=== PATIENT | female | born 1955 | race African-American/Black ===

== ENCOUNTER 2018-08-13 18:09 | Inpatient (IN) | payer SELFPAY ==
[~2018-08-13] VITALS: Ht 165.1 cm; Wt 106.1 kg
[~2018-08-13 18:09] MED LIST: AMLO10TA8 PO; ATOR10TA60 PO; HYDR12.58 PO; LABE200T4 PO; LISI-130 PO
[2018-08-13] MEDS ORDERED: fentaNYL PF VIAL 100 MCG/2 ML VIAL IV ONE (19:45)
[2018-08-13] MEDS ORDERED: hydrALAZINE 20 MG/ML VIAL. IVP ONE (19:45)
[2018-08-13] MEDS ORDERED: ONDANSETRON PF 4 MG/2 ML VIAL. IV ONE (19:45)
--- NOTE | 2018-08-13 20:27 | RAD ---
PORTABLE CHEST 1V History: Hypertensive crisis Comparison: June 27, 2015 Findings: Single view of the chest is submitted. There is no infiltrate, pneumothorax, or effusion. Pericardial cardiac silhouette is somewhat enlarged although similar. Impression: 1. No acute radiographic abnormality is identified. There is similar mild enlargement of the pericardial cardiac silhouette. Electronically signed by: Israel Lamb MD (08/13/2018 8:24 PM) [facility]
[2018-08-13 20:32] LABS: BASO # 0.1 x10^3/uL (0.0-0.2); BASO % 1 % (0-3); EOS # 0.3 x10^3/uL (0.0-0.7); EOS % 3 % (0-3); HEMATOCRIT 44.2 % (36.0-47.0); HEMOGLOBIN 14.4 g/dL (12.0-15.5); LYMPH # 2.9 x10^3/uL (1.0-4.8); LYMPH % 29 % (24-48); MEAN CORPUSCULAR HEMOGLOBIN 28 pg (25-35); MEAN CORPUSCULAR HGB CONC 33 g/dL (31-37); MEAN CORPUSCULAR VOLUME 87 fL (79-100); MONO # 0.7 x10^3/uL (0.0-1.1); MONO % 7 % (0-9); NEUT % 60 % (31-73); PLATELET COUNT 215 x10^3/uL (140-400); RED BLOOD COUNT 5.08 x10^6/uL (3.50-5.40); RED CELL DISTRIBUTION WIDTH 15.6 % (11.5-14.5)
[2018-08-13 20:39] LABS: BILIRUBIN,URINE NEGATIVE (NEG); CLARITY,URINE CLEAR; COLOR,URINE YELLOW; NITRITE,URINE POSITIVE (NEG); PROTEIN,URINE NEGATIVE (NEG-TRACE); UROBILINOGEN,URINE 0.2 mg/dL (0.2 mg/dL)
[2018-08-13 20:50] LABS: BACTERIA,URINE MANY /HPF (0-FEW); RBC,URINE 0 /HPF (0-2); SQUAMOUS EPITHELIAL CELL,UR MOD /LPF; WBC,URINE OCC /HPF (0-4)
[2018-08-13] MEDS ORDERED: cloNIDine HCL 0.1 MG TABLET ONE (21:01)
[2018-08-13] MEDS ORDERED: cloNIDine HCL 0.1 MG TABLET PO ONE (21:30)
[2018-08-13 22:25] LABS: CALCIUM 9.7 mg/dL (8.5-10.1); CREATININE 0.9 mg/dL (0.6-1.0); POTASSIUM 3.5 mmol/L (3.5-5.1)
[2018-08-13 22:31] LABS: ALBUMIN 3.6 g/dL (3.4-5.0); ALBUMIN/GLOBULIN RATIO 0.8 (1.0-1.7); TOTAL BILIRUBIN 0.6 mg/dL (0.2-1.0); TOTAL PROTEIN 8.2 g/dL (6.4-8.2)
[2018-08-13] MEDS ORDERED: cefTRIAXone IV Push 1 GM VIAL. IVP ONE (23:00)
[2018-08-14] VITALS (9 sets, daily range): BP systolic 137–227; BP diastolic 68–122
[2018-08-14] MEDS ORDERED: ONDANSETRON PF 4 MG/2 ML VIAL. IV PRN (00:15)
[2018-08-14] MEDS ORDERED: fentaNYL PF VIAL 100 MCG/2 ML VIAL IV PRN (00:15)
--- NOTE | 2018-08-14 00:19 | PHYS DOC ---
Past Medical History Past Medical History: Hypertension Past Surgical History: Other Additional Past Surgical Histo: FIBROIDS REMOVED FROM OVARIES, SBO, L KNEE SX,myomectomy Alcohol Use: None Drug Use: None Adult General Chief Complaint Chief Complaint: HYPERTENSION HPI HPI Patient is a 62-year-old female who presents with complaint of severe headache that she rates at a 10 out of 10 and elevated blood pressures. Patient states that the headache started yesterday but her blood pressures have been running high for quite some time. Upon arrival, patient's blood pressure was markedly elevated at 240s over 150s. Patient does indicate that she has had some nausea but no vomiting. She describes the headache as like her head is been a explode.[] Review of Systems Review of Systems Constitutional: Denies fever or chills [] Eyes: Denies change in visual acuity, redness, or eye pain [] Respiratory: Denies cough or shortness of breath [] Cardiovascular: No additional information not addressed in HPI [] GI: Denies abdominal pain. Admits to nausea but no vomiting or diarrhea [] Integument: Denies rash or skin lesions [] Neurologic: Complains of headache without focal weakness or sensory changes [] All other systems were reviewed and found to be within normal limits, except as documented in this note. Current Medications Current Medications Current Medications Medications (Trade) Dose Ordered Sig/Carmina Start Time Stop Time Status Last Admin Dose Admin Ceftriaxone Sodium (Rocephin) 1 gm 1X ONCE 08/13/18 23:00 08/13/18 23:01 DC 08/13/18 23:36 1 GM Clonidine HCl (Catapres) 0.1 mg STK-MED ONCE 08/13/18 21:01 08/13/18 21:02 DC Fentanyl Citrate (Fentanyl 2ml Vial) 50 mcg PRN Q1HR PRN 08/14/18 00:15 08/15/18 00:14 Hydralazine HCl (Apresoline Inj) 10 mg 1X ONCE 08/13/18 19:45 08/13/18 19:47 DC 08/13/18 22:05 10 MG Ondansetron HCl (Zofran) 4 mg PRN Q8HRS PRN 08/14/18 00:15 08/15/18 00:14 Allergies Allergies Allergies Coded Allergies Type Severity Reaction Last Updated Verified No Known Drug Allergies 06/27/15 No Physical Exam Physical Exam Constitutional: Well developed, well nourished, no acute distress, non-toxic appearance. [] HENT: Normocephalic, atraumatic, bilateral external ears normal, oropharynx moist, no oral exudates, nose normal. [] Eyes: PERRLA, EOMI, conjunctiva normal, no discharge. [] Neck: Normal range of motion, no tenderness, supple, no stridor. [] Cardiovascular:Heart rate regular rhythm, no murmur [] Lungs & Thorax: Bilateral breath sounds clear to auscultation [] Abdomen: Bowel sounds normal, soft, no tenderness, no masses, no pulsatile masses. [] Skin: Warm, dry, no erythema, no rash. [] Back: No tenderness, no CVA tenderness. [] Extremities: No tenderness, no cyanosis, no clubbing, ROM intact, no edema. [] Neurologic: Alert and oriented X 3, normal motor function, normal sensory function, no focal deficits noted. [] Psychologic: Affect normal, judgement normal, mood normal. [] Current Patient Data Vital Signs Vital Signs Date Time Temp Pulse Resp B/P (MAP) Pulse Ox O2 Delivery O2 Flow Rate FiO2 08/14/18 00:14 76 18 95 08/13/18 22:05 205/115 08/13/18 19:05 98.3 98.3 08/13/18 18:50 Room Air Lab Values Laboratory Tests Test 08/13/18 19:05 08/13/18 20:14 08/13/18 21:40 Urine Collection Type Unknown Urine Color Yellow Urine Clarity Clear Urine pH 7.0 Urine Specific [place] 1.015 Urine Protein Negative mg/dL (NEG-TRACE) Urine Glucose (UA) Negative mg/dL (NEG) Urine Ketones (Stick) Negative mg/dL (NEG) Urine Blood Negative (NEG) Urine Nitrite Positive (NEG) Urine Bilirubin Negative (NEG) Urine Urobilinogen Dipstick 0.2 mg/dL (0.2 mg/dL) Urine Leukocyte Esterase Negative (NEG) Urine RBC 0 /HPF (0-2) Urine WBC Occ /HPF (0-4) Urine Squamous Epithelial Cells Mod /LPF Urine Bacteria Many /HPF (0-FEW) White Blood Count 10.0 x10^3/uL (4.0-11.0) Red Blood Count 5.08 x10^6/uL (3.50-5.40) Hemoglobin 14.4 g/dL (12.0-15.5) Hematocrit 44.2 % (36.0-47.0) Mean Corpuscular Volume 87 fL (79-100) Mean Corpuscular Hemoglobin 28 pg (25-35) Mean Corpuscular Hemoglobin Concent 33 g/dL (31-37) Red Cell Distribution Width 15.6 % (11.5-14.5) H Platelet Count 215 x10^3/uL (140-400) Neutrophils (%) (Auto) 60 % (31-73) Lymphocytes (%) (Auto) 29 % (24-48) Monocytes (%) (Auto) 7 % (0-9) Eosinophils (%) (Auto) 3 % (0-3) Basophils (%) (Auto) 1 % (0-3) Neutrophils # (Auto) 6.0 x10^3uL (1.8-7.7) Lymphocytes # (Auto) 2.9 x10^3/uL (1.0-4.8) Monocytes # (Auto) 0.7 x10^3/uL (0.0-1.1) Eosinophils # (Auto) 0.3 x10^3/uL (0.0-0.7) Basophils # (Auto) 0.1 x10^3/uL (0.0-0.2) Sodium Level 142 mmol/L (136-145) Potassium Level 3.5 mmol/L (3.5-5.1) Chloride Level 104 mmol/L (98-107) Carbon Dioxide Level 26 mmol/L (21-32) Anion Gap 12 (6-14) Blood Urea Nitrogen 12 mg/dL (7-20) Creatinine 0.9 mg/dL (0.6-1.0) Estimated GFR (Cockcroft-Gault) 77.0 BUN/Creatinine Ratio 13 (6-20) Glucose Level 106 mg/dL (70-99) H Calcium Level 9.7 mg/dL (8.5-10.1) Magnesium Level 2.0 mg/dL (1.8-2.4) Total Bilirubin 0.6 mg/dL (0.2-1.0) Aspartate Amino Transferase (AST) 21 U/L (15-37) Alanine Aminotransferase (ALT) 24 U/L (14-59) Alkaline Phosphatase 73 U/L (46-116) Troponin I Quantitative 0.022 ng/mL (0.000-0.055) Total Protein 8.2 g/dL (6.4-8.2) Albumin 3.6 g/dL (3.4-5.0) Albumin/Globulin Ratio 0.8 (1.0-1.7) L Thyroid Stimulating Hormone (TSH) 2.294 uIU/mL (0.358-3.74) Laboratory Tests 08/13/18 20:14 Laboratory Tests 08/13/18 21:40 EKG EKG [] Radiology/Procedures Radiology/Procedures [] Course & Med Decision Making Course & Med Decision Making Pertinent Labs and Imaging studies reviewed. (See chart for details) [] Dragon Disclaimer Dragon Disclaimer This electronic medical record was generated, in whole or in part, using a voice recognition dictation system. Departure Departure Impression: Primary Impression: Hypertensive crisis Additional Impression: UTI (urinary tract infection) Disposition: ADMITTED INPATIENT Admitting Physician: Huyen Mccartney Condition: IMPROVED Referrals: NO PCP (PCP) Problem Qualifiers Additional Impression: UTI (urinary tract infection) Urinary tract infection type: site unspecified Hematuria presence: without hematuria Qualified Codes: N39.0 - Urinary tract infection, site not specified ESVIN ROLLE Jr. DO August 14, 2018 00:19
[2018-08-14] MEDS ORDERED: LABETALOL 20 MG/4 ML DISP.SYRIN. IVP PRN (03:00)
[2018-08-14] MEDS ORDERED: diphenhydrAMINE 50 MG/ML VIAL IVP ONE (05:15)
[2018-08-14] MEDS ORDERED: methylPREDNISolone SOD SUCC PF 125 MG/2 ML VIAL. IV ONE (05:15)
--- NOTE | 2018-08-14 05:37 | RAD ---
CT brain without contrast. HISTORY: Hypertensive crisis, headache CT scan of brain was done without contrast. Comparison is made with a previous study from June 2015. There is a small rounded hemorrhage or high density lesion in the parietal region on the left measuring 7 mm on image #21. MRI would be of benefit for further evaluation. There is mild decreased density in the white matter diffusely probably chronic microvascular changes. Ventricles are normal in size. There is no other evidence that would suggest hemorrhage. There is no acute CVA noted. Sinuses are clear. IMPRESSION: 1. Small focal hemorrhage or small high density nodule in the parietal lobe on the left. MRI would be of benefit. 2. Diffuse chronic microvascular change in the white matter. 3. No other hemorrhage or acute finding noted. Electronically signed by: Altaf Goldberg MD (08/14/2018 5:34 AM) [id number]
[2018-08-14] MEDS: hydrALAZINE 20 MG/ML VIAL. IVP PRN ×2 (05:41→22:55)
--- NOTE | 2018-08-14 06:19 | EKG ---
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
[2018-08-14] MEDS: ACETAMINOPHEN 325 MG TABLET. PO PRN ×2 (08:40→14:32)
[2018-08-14] MEDS ORDERED: LISINOPRIL 10 MG TABLET PO SCH (09:00)
[2018-08-14] MEDS ORDERED: hydroCHLOROthiazide 12.5 MG CAPSULE PO SCH (09:00)
--- NOTE | 2018-08-14 09:56 | PDOC1 ---
History and Physical Date of Admission Date of Admission DATE: 08/14/18 TIME: 09:51 Identification/Chief Complaint Chief Complaint Headache, Source Source: Caregiver, Chart review, Patient History of Present Illness History of Present Illness 62-year-old morbidly obese female with a BMI 39, was supposed to be on Norvasc by Dr. Riley not taking because lost insurance. Headache and some other maybe weakness symptoms as CC. Found to have a blood pressure over 200 systolic, hence admitted. Multiple calls overnight, blood pressure over 200s, I ordered labetolol. Then got called back by RN for welts and hives, minutes after labetalol was given. I ordered some hydralazine then. Tolerated that fine. Now labetolol listed as allergy I did start lisinopril and HCTZ combination pill because of hypertensive emergency. Called by RN also for CT scan showed maybe punctate hemorrhages, small. I did consult neurology, ordered an MRI. Cardiology also on the case for echocardiogram. Patient remains her eyes close, still weak or headache, still not feeling well. Nonsmoker nondrinker, no family history of hypertension or coronary artery disease No past significant past surgical history Past Medical History Cardiovascular: HTN Past Surgical History Past Surgical History: No pertinent history Family History Family History: Hypertension Social History Smoke: No ALCOHOL: none Drugs: None Current Problem List Problem List Problems Medical Problems: (1) Hypertensive crisis Status: Acute (2) UTI (urinary tract infection) Status: Acute Current Medications Current Medications Current Medications Hydralazine HCl (Apresoline Inj) 10 mg 1X ONCE IVP Last administered on 08/13/18at 22:05; Start 08/13/18 at 19:45; Stop 08/13/18 at 19:47; Status DC Fentanyl Citrate (Fentanyl 2ml Vial) 50 mcg 1X ONCE IV ; Start 08/13/18 at 19:45; Stop 08/13/18 at 19:47; Status DC Ondansetron HCl (Zofran) 4 mg 1X ONCE IV ; Start 08/13/18 at 19:45; Stop 08/13/18 at 19:47; Status DC Clonidine HCl (Catapres) 0.2 mg 1X ONCE PO Last administered on 08/13/18at 21:02; Start 08/13/18 at 21:30; Stop 08/13/18 at 21:31; Status DC Clonidine HCl (Catapres) 0.1 mg STK-MED ONCE .ROUTE ; Start 08/13/18 at 21:01; Stop 08/13/18 at 21:02; Status DC Ceftriaxone Sodium (Rocephin) 1 gm 1X ONCE IVP Last administered on 08/13/18at 23:36; Start 08/13/18 at 23:00; Stop 08/13/18 at 23:01; Status DC Ondansetron HCl (Zofran) 4 mg PRN Q8HRS PRN IV NAUSEA/VOMITING 1ST CHOICE Last administered on 08/14/18at 05:40; Start 08/14/18 at 00:15; Stop 08/14/18 at 07:32; Status DC Fentanyl Citrate (Fentanyl 2ml Vial) 50 mcg PRN Q1HR PRN IV SEVERE PAIN; Start 08/14/18 at 00:15; Stop 08/15/18 at 00:14 Labetalol HCl (Normodyne Iv Push) 20 mg PRN Q2HR PRN IVP HYPERTENSION Last administered on 08/14/18at 03:06; Start 08/14/18 at 03:00; Stop 08/14/18 at 04:57; Status DC Acetaminophen (Tylenol) 650 mg PRN Q6HRS PRN PO HEADACHE Last administered on 08/14/18at 08:40; Start 08/14/18 at 03:00 Methylprednisolone Sodium Succinate (SOLU-Medrol 125MG VIAL) 125 mg 1X ONCE IV Last administered on 08/14/18at 05:41; Start 08/14/18 at 05:15; Stop 08/14/18 at 05:16; Status DC Diphenhydramine HCl (Benadryl) 50 mg 1X ONCE IVP Last administered on 08/14/18at 05:41; Start 08/14/18 at 05:15; Stop 08/14/18 at 05:16; Status DC Diphenhydramine HCl (Benadryl) 25 mg PRN Q6HRS PRN IVP ITCHING; Start 08/14/18 at 05:00 Hydralazine HCl (Apresoline Inj) 10 mg PRN Q6HRS PRN IVP ELEVATED BP, SEE COMMENTS Last administered on 08/14/18at 05:41; Start 08/14/18 at 05:00 Ondansetron HCl (Zofran) 4 mg PRN Q6HRS PRN IV NAUSEA/VOMITING 1ST CHOICE; Start 08/14/18 at 07:45 Lisinopril (Prinivil) 10 mg DAILY PO Last administered on 08/14/18at 08:40; Start 08/14/18 at 09:00 Hydrochlorothiazide (Microzide) 12.5 mg DAILY PO Last administered on 08/14/18at 08:40; Start 08/14/18 at 09:00 Active Scripts Active Allergies Allergies: Coded Allergies: labetalol (Verified Allergy, Intermediate, Hives, 08/14/18) ROS Review of System As per history of present illness, the rest of ROS 14 point negative Physical Exam General: Alert, Oriented X3, Cooperative, No acute distress, Other (eyes close, looks uncomfortable) HEENT: Atraumatic, PERRLA, EOMI Lungs: Clear to auscultation, Normal air movement Heart: S1S2, RRR, no thrills, no rubs, no gallops, no murmurs Cardiovascular: S1 Breasts: Normal, Rt breast nml w/o mass, Lt breast nml w/o mass, Nipples normal Abdomen: Normal bowel sounds, Soft, No tenderness, No hepatosplenomegaly, No masses Rectal Exam: not examined PELVIC: Nml ext genitalia Extremities: No clubbing, No cyanosis, No edema, Normal pulses, No tenderness/swelling Skin: No rashes, No breakdown, No significant lesion Neuro: Normal gait, Normal speech, Strength at 5/5 X4 ext, Normal tone, Sensation intact, Cranial nerves 3-12 NL, Reflexes 2+ Psych/Mental Status: Mental status NL, Mood NL Vitals Vitals Vital Signs Date Time Temp Pulse Resp B/P (MAP) Pulse Ox O2 Delivery O2 Flow Rate FiO2 08/14/18 08:40 81 144/68 08/14/18 07:00 98.2 16 Room Air 98.2 08/14/18 02:10 95 Labs Labs Laboratory Tests Test 08/13/18 19:05 08/13/18 20:14 08/13/18 21:40 Urine Collection Type Unknown Urine Color Yellow Urine Clarity Clear Urine pH 7.0 Urine Specific [place] 1.015 Urine Protein Negative mg/dL (NEG-TRACE) Urine Glucose (UA) Negative mg/dL (NEG) Urine Ketones (Stick) Negative mg/dL (NEG) Urine Blood Negative (NEG) Urine Nitrite Positive (NEG) Urine Bilirubin Negative (NEG) Urine Urobilinogen Dipstick 0.2 mg/dL (0.2 mg/dL) Urine Leukocyte Esterase Negative (NEG) Urine RBC 0 /HPF (0-2) Urine WBC Occ /HPF (0-4) Urine Squamous Epithelial Cells Mod /LPF Urine Bacteria Many /HPF (0-FEW) White Blood Count 10.0 x10^3/uL (4.0-11.0) Red Blood Count 5.08 x10^6/uL (3.50-5.40) Hemoglobin 14.4 g/dL (12.0-15.5) Hematocrit 44.2 % (36.0-47.0) Mean Corpuscular Volume 87 fL (79-100) Mean Corpuscular Hemoglobin 28 pg (25-35) Mean Corpuscular Hemoglobin Concent 33 g/dL (31-37) Red Cell Distribution Width 15.6 % (11.5-14.5) Platelet Count 215 x10^3/uL (140-400) Neutrophils (%) (Auto) 60 % (31-73) Lymphocytes (%) (Auto) 29 % (24-48) Monocytes (%) (Auto) 7 % (0-9) Eosinophils (%) (Auto) 3 % (0-3) Basophils (%) (Auto) 1 % (0-3) Neutrophils # (Auto) 6.0 x10^3uL (1.8-7.7) Lymphocytes # (Auto) 2.9 x10^3/uL (1.0-4.8) Monocytes # (Auto) 0.7 x10^3/uL (0.0-1.1) Eosinophils # (Auto) 0.3 x10^3/uL (0.0-0.7) Basophils # (Auto) 0.1 x10^3/uL (0.0-0.2) Sodium Level 142 mmol/L (136-145) Potassium Level 3.5 mmol/L (3.5-5.1) Chloride Level 104 mmol/L (98-107) Carbon Dioxide Level 26 mmol/L (21-32) Anion Gap 12 (6-14) Blood Urea Nitrogen 12 mg/dL (7-20) Creatinine 0.9 mg/dL (0.6-1.0) Estimated GFR (Cockcroft-Gault) 77.0 BUN/Creatinine Ratio 13 (6-20) Glucose Level 106 mg/dL (70-99) Calcium Level 9.7 mg/dL (8.5-10.1) Magnesium Level 2.0 mg/dL (1.8-2.4) Total Bilirubin 0.6 mg/dL (0.2-1.0) Aspartate Amino Transf (AST/SGOT) 21 U/L (15-37) Alanine Aminotransferase (ALT/SGPT) 24 U/L (14-59) Alkaline Phosphatase 73 U/L (46-116) Troponin I Quantitative 0.022 ng/mL (0.000-0.055) Total Protein 8.2 g/dL (6.4-8.2) Albumin 3.6 g/dL (3.4-5.0) Albumin/Globulin Ratio 0.8 (1.0-1.7) Thyroid Stimulating Hormone (TSH) 2.294 uIU/mL (0.358-3.74) Laboratory Tests Test 08/13/18 19:05 08/13/18 20:14 08/13/18 21:40 Urine Collection Type Unknown Urine Color Yellow Urine Clarity Clear Urine pH 7.0 Urine Specific [place] 1.015 Urine Protein Negative mg/dL (NEG-TRACE) Urine Glucose (UA) Negative mg/dL (NEG) Urine Ketones (Stick) Negative mg/dL (NEG) Urine Blood Negative (NEG) Urine Nitrite Positive (NEG) Urine Bilirubin Negative (NEG) Urine Urobilinogen Dipstick 0.2 mg/dL (0.2 mg/dL) Urine Leukocyte Esterase Negative (NEG) Urine RBC 0 /HPF (0-2) Urine WBC Occ /HPF (0-4) Urine Squamous Epithelial Cells Mod /LPF Urine Bacteria Many /HPF (0-FEW) White Blood Count 10.0 x10^3/uL (4.0-11.0) Red Blood Count 5.08 x10^6/uL (3.50-5.40) Hemoglobin 14.4 g/dL (12.0-15.5) Hematocrit 44.2 % (36.0-47.0) Mean Corpuscular Volume 87 fL (79-100) Mean Corpuscular Hemoglobin 28 pg (25-35) Mean Corpuscular Hemoglobin Concent 33 g/dL (31-37) Red Cell Distribution Width 15.6 % (11.5-14.5) Platelet Count 215 x10^3/uL (140-400) Neutrophils (%) (Auto) 60 % (31-73) Lymphocytes (%) (Auto) 29 % (24-48) Monocytes (%) (Auto) 7 % (0-9) Eosinophils (%) (Auto) 3 % (0-3) Basophils (%) (Auto) 1 % (0-3) Neutrophils # (Auto) 6.0 x10^3uL (1.8-7.7) Lymphocytes # (Auto) 2.9 x10^3/uL (1.0-4.8) Monocytes # (Auto) 0.7 x10^3/uL (0.0-1.1) Eosinophils # (Auto) 0.3 x10^3/uL (0.0-0.7) Basophils # (Auto) 0.1 x10^3/uL (0.0-0.2) Sodium Level 142 mmol/L (136-145) Potassium Level 3.5 mmol/L (3.5-5.1) Chloride Level 104 mmol/L (98-107) Carbon Dioxide Level 26 mmol/L (21-32) Anion Gap 12 (6-14) Blood Urea Nitrogen 12 mg/dL (7-20) Creatinine 0.9 mg/dL (0.6-1.0) Estimated GFR (Cockcroft-Gault) 77.0 BUN/Creatinine Ratio 13 (6-20) Glucose Level 106 mg/dL (70-99) Calcium Level 9.7 mg/dL (8.5-10.1) Magnesium Level 2.0 mg/dL (1.8-2.4) Total Bilirubin 0.6 mg/dL (0.2-1.0) Aspartate Amino Transf (AST/SGOT) 21 U/L (15-37) Alanine Aminotransferase (ALT/SGPT) 24 U/L (14-59) Alkaline Phosphatase 73 U/L (46-116) Troponin I Quantitative 0.022 ng/mL (0.000-0.055) Total Protein 8.2 g/dL (6.4-8.2) Albumin 3.6 g/dL (3.4-5.0) Albumin/Globulin Ratio 0.8 (1.0-1.7) Thyroid Stimulating Hormone (TSH) 2.294 uIU/mL (0.358-3.74) VTE Prophylaxis Ordered VTE Prophylaxis Devices: Contraindicated VTE Pharmacological Prophylaxi: Contraindicated Assessment/Plan Assessment/Plan HTN emergency Small punctate microhemorrhages in the brain in the background of hypertensive emergency Obesity, BMI 39 Labetalol allergy Plan: admit 2 [place] hydralazine when necessary Start lisinopril HCTZ combo pill 01/02.5 MRI of the brain Neurology consult No aspirin Lipid panel Echocardiogram for hypertensive heart disease PT OT Discussed with her, no aspirin or NSAIDs please CC 34 KAYLA HI MD August 14, 2018 09:56
--- NOTE | 2018-08-14 11:40 | PDOC2 ---
CONSULT Date of Consult Date of Consult DATE: 08/14/18 TIME: 11:39 Reason for Consult Reason for Consult: Accelerated hypertension Referring Physician Referring Physician: Dr. Mccartney Identification/Chief Complaint Chief Complaint Headache Source Source: Chart review, Patient History of Present Illness Reason for Visit: 62-year-old female with history of hypertension presented with severe headache and was found to have accelerated hypertension. She denied any chest pain, orthopnea/PND, palpitations, syncope. She complained of nausea but denied any vo miting. Past Medical History Cardiovascular: HTN Past Surgical History Past Surgical History Fibroid removal Left knee surgery Family History Family History Hypertension Family History: Hypertension Social History No ALCOHOL: none Drugs: None Current Problem List Problem List Problems Medical Problems: (1) Hypertensive crisis Status: Acute (2) UTI (urinary tract infection) Status: Acute Current Medications Current Medications Current Medications Hydralazine HCl (Apresoline Inj) 10 mg 1X ONCE IVP Last administered on 08/13/18at 22:05; Start 08/13/18 at 19:45; Stop 08/13/18 at 19:47; Status DC Fentanyl Citrate (Fentanyl 2ml Vial) 50 mcg 1X ONCE IV ; Start 08/13/18 at 19:45; Stop 08/13/18 at 19:47; Status DC Ondansetron HCl (Zofran) 4 mg 1X ONCE IV ; Start 08/13/18 at 19:45; Stop 08/13/18 at 19:47; Status DC Clonidine HCl (Catapres) 0.2 mg 1X ONCE PO Last administered on 08/13/18at 21:02; Start 08/13/18 at 21:30; Stop 08/13/18 at 21:31; Status DC Clonidine HCl (Catapres) 0.1 mg STK-MED ONCE .ROUTE ; Start 08/13/18 at 21:01; Stop 08/13/18 at 21:02; Status DC Ceftriaxone Sodium (Rocephin) 1 gm 1X ONCE IVP Last administered on 08/13/18at 23:36; Start 08/13/18 at 23:00; Stop 08/13/18 at 23:01; Status DC Ondansetron HCl (Zofran) 4 mg PRN Q8HRS PRN IV NAUSEA/VOMITING 1ST CHOICE Last administered on 08/14/18at 05:40; Start 08/14/18 at 00:15; Stop 08/14/18 at 07:32; Status DC Fentanyl Citrate (Fentanyl 2ml Vial) 50 mcg PRN Q1HR PRN IV SEVERE PAIN; Start 08/14/18 at 00:15; Stop 08/15/18 at 00:14 Labetalol HCl (Normodyne Iv Push) 20 mg PRN Q2HR PRN IVP HYPERTENSION Last administered on 08/14/18at 03:06; Start 08/14/18 at 03:00; Stop 08/14/18 at 04:57; Status DC Acetaminophen (Tylenol) 650 mg PRN Q6HRS PRN PO HEADACHE Last administered on 08/14/18at 08:40; Start 08/14/18 at 03:00 Methylprednisolone Sodium Succinate (SOLU-Medrol 125MG VIAL) 125 mg 1X ONCE IV Last administered on 08/14/18at 05:41; Start 08/14/18 at 05:15; Stop 08/14/18 at 05:16; Status DC Diphenhydramine HCl (Benadryl) 50 mg 1X ONCE IVP Last administered on 08/14/18at 05:41; Start 08/14/18 at 05:15; Stop 08/14/18 at 05:16; Status DC Diphenhydramine HCl (Benadryl) 25 mg PRN Q6HRS PRN IVP ITCHING; Start 08/14/18 at 05:00 Hydralazine HCl (Apresoline Inj) 10 mg PRN Q6HRS PRN IVP ELEVATED BP, SEE COMMENTS Last administered on 08/14/18at 05:41; Start 08/14/18 at 05:00 Ondansetron HCl (Zofran) 4 mg PRN Q6HRS PRN IV NAUSEA/VOMITING 1ST CHOICE; Start 08/14/18 at 07:45 Lisinopril (Prinivil) 10 mg DAILY PO Last administered on 08/14/18at 08:40; Sta rt 08/14/18 at 09:00 Hydrochlorothiazide (Microzide) 12.5 mg DAILY PO Last administered on 08/14/18at 08:40; Start 08/14/18 at 09:00 Active Scripts Active Allergies Allergies: Coded Allergies: labetalol (Verified Allergy, Intermediate, Hives, 08/14/18) ROS PSYCHOLOGICAL ROS: No: Hallucinations Eyes: No Loss of vision HEENT: YES: Heacaches; No: Epistaxis Respiratory: No: Shortness of breath Cardiovascular: No Chest Pain, No Palpitations Gastrointestinal: Yes Nausea; No Vomiting, No Diarrhea Neurological: No Seizures Skin: No Rash Physical Exam General: Alert, Oriented X3 HEENT: Atraumatic, PERRLA Lungs: Clear to auscultation Heart: Regular rate Abdomen: Soft, No tenderness Extremities: No edema Psych/Mental Status: Mood NL Vitals VITALS Vital Signs Date Time Temp Pulse Resp B/P (MAP) Pulse Ox O2 Delivery O2 Flow Rate FiO2 08/14/18 08:40 81 144/68 08/14/18 08:00 Room Air 08/14/18 07:00 98.2 16 98.2 08/14/18 02:10 95 Labs Labs Laboratory Tests Test 08/13/18 19:05 08/13/18 20:14 08/13/18 21:40 Urine Collection Type Unknown Urine Color Yellow Urine Clarity Clear Urine pH 7.0 Urine Specific [place] 1.015 Urine Protein Negative mg/dL (NEG-TRACE) Urine Glucose (UA) Negative mg/dL (NEG) Urine Ketones (Stick) Negative mg/dL (NEG) Urine Blood Negative (NEG) Urine Nitrite Positive (NEG) Urine Bilirubin Negative (NEG) Urine Urobilinogen Dipstick 0.2 mg/dL (0.2 mg/dL) Urine Leukocyte Esterase Negative (NEG) Urine RBC 0 /HPF (0-2) Urine WBC Occ /HPF (0-4) Urine Squamous Epithelial Cells Mod /LPF Urine Bacteria Many /HPF (0-FEW) White Blood Count 10.0 x10^3/uL (4.0-11.0) Red Blood Count 5.08 x10^6/uL (3.50-5.40) Hemoglobin 14.4 g/dL (12.0-15.5) Hematocrit 44.2 % (36.0-47.0) Mean Corpuscular Volume 87 fL (79-100) Mean Corpuscular Hemoglobin 28 pg (25-35) Mean Corpuscular Hemoglobin Concent 33 g/dL (31-37) Red Cell Distribution Width 15.6 % (11.5-14.5) Platelet Count 215 x10^3/uL (140-400) Neutrophils (%) (Auto) 60 % (31-73) Lymphocytes (%) (Auto) 29 % (24-48) Monocytes (%) (Auto) 7 % (0-9) Eosinophils (%) (Auto) 3 % (0-3) Basophils (%) (Auto) 1 % (0-3) Neutrophils # (Auto) 6.0 x10^3uL (1.8-7.7) Lymphocytes # (Auto) 2.9 x10^3/uL (1.0-4.8) Monocytes # (Auto) 0.7 x10^3/uL (0.0-1.1) Eosinophils # (Auto) 0.3 x10^3/uL (0.0-0.7) Basophils # (Auto) 0.1 x10^3/uL (0.0-0.2) Sodium Level 142 mmol/L (136-145) Potassium Level 3.5 mmol/L (3.5-5.1) Chloride Level 104 mmol/L (98-107) Carbon Dioxide Level 26 mmol/L (21-32) Anion Gap 12 (6-14) Blood Urea Nitrogen 12 mg/dL (7-20) Creatinine 0.9 mg/dL (0.6-1.0) Estimated GFR (Cockcroft-Gault) 77.0 BUN/Creatinine Ratio 13 (6-20) Glucose Level 106 mg/dL (70-99) Calcium Level 9.7 mg/dL (8.5-10.1) Magnesium Level 2.0 mg/dL (1.8-2.4) Total Bilirubin 0.6 mg/dL (0.2-1.0) Aspartate Amino Transf (AST/SGOT) 21 U/L (15-37) Alanine Aminotransferase (ALT/SGPT) 24 U/L (14-59) Alkaline Phosphatase 73 U/L (46-116) Troponin I Quantitative 0.022 ng/mL (0.000-0.055) Total Protein 8.2 g/dL (6.4-8.2) Albumin 3.6 g/dL (3.4-5.0) Albumin/Globulin Ratio 0.8 (1.0-1.7) Thyroid Stimulating Hormone (TSH) 2.294 uIU/mL (0.358-3.74) Laboratory Tests Test 08/13/18 19:05 08/13/18 20:14 08/13/18 21:40 Urine Collection Type Unknown Urine Color Yellow Urine Clarity Clear Urine pH 7.0 Urine Specific [place] 1.015 Urine Protein Negative mg/dL (NEG-TRACE) Urine Glucose (UA) Negative mg/dL (NEG) Urine Ketones (Stick) Negative mg/dL (NEG) Urine Blood Negative (NEG) Urine Nitrite Positive (NEG) Urine Bilirubin Negative (NEG) Urine Urobilinogen Dipstick 0.2 mg/dL (0.2 mg/dL) Urine Leukocyte Esterase Negative (NEG) Urine RBC 0 /HPF (0-2) Urine WBC Occ /HPF (0-4) Urine Squamous Epithelial Cells Mod /LPF Urine Bacteria Many /HPF (0-FEW) White Blood Count 10.0 x10^3/uL (4.0-11.0) Red Blood Count 5.08 x10^6/uL (3.50-5.40) Hemoglobin 14.4 g/dL (12.0-15.5) Hematocrit 44.2 % (36.0-47.0) Mean Corpuscular Volume 87 fL (79-100) Mean Corpuscular Hemoglobin 28 pg (25-35) Mean Corpuscular Hemoglobin Concent 33 g/dL (31-37) Red Cell Distribution Width 15.6 % (11.5-14.5) Platelet Count 215 x10^3/uL (140-400) Neutrophils (%) (Auto) 60 % (31-73) Lymphocytes (%) (Auto) 29 % (24-48) Monocytes (%) (Auto) 7 % (0-9) Eosinophils (%) (Auto) 3 % (0-3) Basophils (%) (Auto) 1 % (0-3) Neutrophils # (Auto) 6.0 x10^3uL (1.8-7.7) Lymphocytes # (Auto) 2.9 x10^3/uL (1.0-4.8) Monocytes # (Auto) 0.7 x10^3/uL (0.0-1.1) Eosinophils # (Auto) 0.3 x10^3/uL (0.0-0.7) Basophils # (Auto) 0.1 x10^3/uL (0.0-0.2) Sodium Level 142 mmol/L (136-145) Potassium Level 3.5 mmol/L (3.5-5.1) Chloride Level 104 mmol/L (98-107) Carbon Dioxide Level 26 mmol/L (21-32) Anion Gap 12 (6-14) Blood Urea Nitrogen 12 mg/dL (7-20) Creatinine 0.9 mg/dL (0.6-1.0) Estimated GFR (Cockcroft-Gault) 77.0 BUN/Creatinine Ratio 13 (6-20) Glucose Level 106 mg/dL (70-99) Calcium Level 9.7 mg/dL (8.5-10.1) Magnesium Level 2.0 mg/dL (1.8-2.4) Total Bilirubin 0.6 mg/dL (0.2-1.0) Aspartate Amino Transf (AST/SGOT) 21 U/L (15-37) Alanine Aminotransferase (ALT/SGPT) 24 U/L (14-59) Alkaline Phosphatase 73 U/L (46-116) Troponin I Quantitative 0.022 ng/mL (0.000-0.055) Total Protein 8.2 g/dL (6.4-8.2) Albumin 3.6 g/dL (3.4-5.0) Albumin/Globulin Ratio 0.8 (1.0-1.7) Thyroid Stimulating Hormone (TSH) 2.294 uIU/mL (0.358-3.74) Assessment/Plan Assessment/Plan 1. Hypertensive emergency: Blood pressure better controlled since admission. Check 2-D echo to assess LV systolic function. Continue current medical regimen. 2. Headaches secondary to uncontrolled hypertension. Neurology following. 3. Hyperlipidemia: LDL elevated. Patient was advised stricter diet control. Repeat lipid profile in 3 months to evaluate the need for statin therapy. Thank you for your consultation. MERLE GARZA MD August 14, 2018 11:40
[2018-08-14 12:01] LABS: CHOLESTEROL/HDL RATIO 4.4
--- NOTE | 2018-08-14 14:56 | PDOC2 ---
NEUROLOGY CONSULT Date of Admission Date of Admission DATE: 08/14/18 TIME: 14:48 Reason for Consult Reason for Consult: IMPRESSION: Hypertensive encephalopathy. Hypertensive emergency, BP 207-240/122 mmHg. Headache. Small 7 mm left parietal hemorrhage. HTN, not compliant to treatment. HLD. Obesity. RECOMMENDATIONS/PLAN: BP control. Avoid anticoagulant and antiplatelet agents this time. Treat medical diseases. Lab: see orders. HISTORY OF THE PRESENT ILLNESS: 62-y-old AA female patient with Hx of HTN, but she has not taken her medications for a long time. She had similar event in 2015 with hypertensive emergency in 2014 and she was hospitalized at that time. However, she has not complained with treatment to control her BP, and had hypertensive emergency again. She has symptoms of headache this time. No focalized motor deficits. PAST MEDICAL HISTORY: See above. PAST SURGERY HISTORY: No major surgery recently. ALLERGY: NKDA. MEDICATIONS: See MAR. FAMILY HISTORY: HTN Grand parents had CVA. SOCIAL HISTORY: Lives at home. Denies current smoking, drinking, and illicit drug use. REVIEW OF SYSTEMS: Constitutional: No malnutrition, weight loss, night sweats, cachexia. Head: No traumatic brain or head injury. Skin: No edema, or rash. Ear: No infection, tinnitus. Eyes: No vision loss, color blindness Nose: No bleeding or purulent discharges. Neck: No injury, lymph note enlargement Breast: No history of cancer, masses, discharges. Cardiac: HTN, HLD. Pulmonary: No hemoptysis, dyspnea GI: No melena, hematochezia Urinary/genital: UTI. Endocrinologic: morbid obesity Skeletomuscular: No muscular atrophy, deformity Neurological: see HP. Psychiatric: Denies drug use/abuse. Otherwise, not -[id number] review of systems. PHYSICAL EXAMINATION: General appearance is in subacute distress. HEENT: Normocephalic and nontraumatic. Eyes, nose, ears, and throat are unremarkable. Neck is supple. No lymphadenopathy. No bruits are heard over the carotid artery. No crepitus. Cardiovascular: S1, S2, regular rate and rhythm. Pulmonary: Clear to auscultation bilaterally. Abdomen: Bowel sounds are positive. Abdomen is soft, nontender, and nondistended. Extremities: No rash, lesions, or edema. No restriction of range of motion NEUROLOGICAL EXAMINATION: Awake. Oriented to time, place and person. Speech not fluent, mild stuttering. PERRL. EOMI. CN: no focal findings. Muscle tone: within normal. Muscle strength: 5 DTR: 1+ due to obesity Plantar reflex: Flexor response bilaterally Gait: not examined in bed. Sensory exam: no abnormal findings. No cerebellar signs elicited. PAST MEDICAL HISTORY: Please see above. PAST SURGERY HISTORY: Pacemaker Placement, S/P CABG, Tonsillectomy, Appendectomy, Cholecystectomy, Hysterectomy, Hernia Repair, Neck, Shoulder, Knee surgery, No major surgery recently. ALLERGY: NKDA Unknown MEDICATIONS: Refer to MAR FAMILY HISTORY: HTN, HLD, DM, CAD, PD, Dementia, Non contributory. SOCIAL HISTORY: Lives alone. Lives in assisted. Denies smoking, drinking, and illicit drug use. He She smokes pack of cigarettes a day for years. He She drinks OZ alcohol a day for years. REVIEW OF SYSTEMS: Constitutional: No malnutrition, weight loss, cachexia. Head: No traumatic brain or head injury. Skin: No edema, or rash. Ear: No infection, tinnitus. Eyes: No vision loss or color blindness. Nose: No bleeding or purulent discharges. Hearing: No hearing decrease. Neck: No injury. Breast: No history of cancer, masses,or discharges. Cardiac: No IL, arrhythmia,claudication, CAD, s/p CABG, AFib, Pacemaker Placement, HTN, HLD. Pulmonary: No pneumonia, COPD. GI: No GI ulcer, GI bleeding, GERD. Urinary/genital: No dysuria, hematuria, incontinence, urinary retention, UTI. Endocrinologic: No cousin face, craniofacial dysmorphism, polydactyly, goiter,Diabetes Mellitus, hypothyroidism, obesity, morbid obesity. Skeletomuscular: No muscular atrophy, deformity, Generalized weakness. Neurological: see HP. Psychiatric: Denies drug use/abuse. Otherwise, not [id number] review of systems. PHYSICAL EXAMINATION: General appearance is in no acute distress. HEENT: Normocephalic and nontraumatic. Eyes, nose, ears, and throat are unremarkable. Neck is supple. No lymphadenopathy. No bruits are heard over the carotid artery. No crepitus. Cardiovascular: S1, S2, regular rate and rhythm. Pulmonary: Clear to auscultation bilaterally. Abdomen: Bowel sounds are positive. Abdomen is soft, nontender, and nondistended. Extremities: No rash, lesions, or edema. No restriction of range of motion NEUROLOGICAL EXAMINATION: Alert Oriented to time, place and person. PERRL. EOMI. CN: no focal findings. Muscle tone: within normal. Muscle strength: 5 DTR: 2 Plantar reflex: Flexor/Neutral response bilaterally Gait: not examined in bed. At baseline normal. Sensory exam: no abnormal findings. No cerebellar signs elicited. F-T-N test accurate. Current Medications Current Medications Current Medications Hydralazine HCl (Apresoline Inj) 10 mg 1X ONCE IVP Last administered on 08/13/18at 22:05; Start 08/13/18 at 19:45; Stop 08/13/18 at 19:47; Status DC Fentanyl Citrate (Fentanyl 2ml Vial) 50 mcg 1X ONCE IV ; Start 08/13/18 at 19:45; Stop 08/13/18 at 19:47; Status DC Ondansetron HCl (Zofran) 4 mg 1X ONCE IV ; Start 08/13/18 at 19:45; Stop 08/13/18 at 19:47; Status DC Clonidine HCl (Catapres) 0.2 mg 1X ONCE PO Last administered on 08/13/18at 21:02; Start 08/13/18 at 21:30; Stop 08/13/18 at 21:31; Status DC Clonidine HCl (Catapres) 0.1 mg STK-MED ONCE .ROUTE ; Start 08/13/18 at 21:01; Stop 08/13/18 at 21:02; Status DC Ceftriaxone Sodium (Rocephin) 1 gm 1X ONCE IVP Last administered on 08/13/18at 23:36; Start 08/13/18 at 23:00; Stop 08/13/18 at 23:01; Status DC Ondansetron HCl (Zofran) 4 mg PRN Q8HRS PRN IV NAUSEA/VOMITING 1ST CHOICE Last administered on 08/14/18at 05:40; Start 08/14/18 at 00:15; Stop 08/14/18 at 07:32; Status DC Fentanyl Citrate (Fentanyl 2ml Vial) 50 mcg PRN Q1HR PRN IV SEVERE PAIN; Start 08/14/18 at 00:15; Stop 08/15/18 at 00:14 Labetalol HCl (Normodyne Iv Push) 20 mg PRN Q2HR PRN IVP HYPERTENSION Last administered on 08/14/18 03:06; Start 08/14/18 at 03:00; Stop 08/14/18 at 04:57; Status DC Acetaminophen (Tylenol) 650 mg PRN Q6HRS PRN PO HEADACHE Last administered on 08/14/18at 14:32; Start 08/14/18 at 03:00 Methylprednisolone Sodium Succinate (SOLU-Medrol 125MG VIAL) 125 mg 1X ONCE IV Last administered on 08/14/18at 05:41; Start 08/14/18 at 05:15; Stop 08/14/18 at 05:16; Status DC Diphenhydramine HCl (Benadryl) 50 mg 1X ONCE IVP Last administered on 08/14/18at 05:41; Start 08/14/18 at 05:15; Stop 08/14/18 at 05:16; Status DC Diphenhydramine HCl (Benadryl) 25 mg PRN Q6HRS PRN IVP ITCHING; Start 08/14/18 at 05:00 Hydralazine HCl (Apresoline Inj) 10 mg PRN Q6HRS PRN IVP ELEVATED BP, SEE COMMENTS Last administered on 08/14/18at 05:41; Start 08/14/18 at 05:00 Ondansetron HCl (Zofran) 4 mg PRN Q6HRS PRN IV NAUSEA/VOMITING 1ST CHOICE; Start 08/14/18 at 07:45 Lisinopril (Prinivil) 10 mg DAILY PO Last administered on 08/14/18at 08:40; Start 08/14/18 at 09:00 Hydrochlorothiazide (Microzide) 12.5 mg DAILY PO Last administered on 08/14/18at 08:40; Start 08/14/18 at 09:00 Active Scripts Active Allergies Allergies: Allergies Coded Allergies Type Severity Reaction Last Updated Verified labetalol Allergy Intermediate Hives 08/14/18 Yes ROS Review of System The patient denies any associated fevers, chills, headache, ear pain, rhinorrhea , sore throat, stiff neck, productive cough, chest pain, shortness of breath, back or flank pain, abdominal pain, nausea, vomiting, diarrhea, constipation, dysuria, rash, numbness, weakness, tingling, incontinence, difficulty ambulating, or diaphoresis. Physical Exam Physical Exam General: Well developed, well nourished, no acute distress, well appearing HEENT: Pupils equally round and reactive to light, EOMI, no discharge, normal conjunctiva Neck: Supple, no nuchal rigidity, no JVD, trachea midline, no tenderness Cardiac: RRR, no murmurs, no gallops, no rubs Chest/Lungs: CTAB, no wheeze, no rhonchi, no crackles Abdomen: soft, non-distended, no guarding, no peritoneal signs, non-tender Back: No tenderness Extremities: no edema, pulses intact, non-tender,capillary refill <3 sec bilateral upper and lower extremities, Neuro: Alert and oriented x 4, no focal deficits, normal speech Vitals Vitals: Vital Signs Date Time Temp Pulse Resp B/P (MAP) Pulse Ox O2 Delivery O2 Flow Rate FiO2 08/14/18 11:00 98.6 82 18 159/84 (109) 96 Room Air 98.6 Labs Labs Laboratory Tests Test 08/13/18 19:05 08/13/18 20:14 08/13/18 21:40 08/14/18 10:22 Urine Collection Type Unknown Urine Color Yellow Urine Clarity Clear Urine pH 7.0 Urine Specific [place] 1.015 Urine Protein Negative mg/dL (NEG-TRACE) Urine Glucose (UA) Negative mg/dL (NEG) Urine Ketones (Stick) Negative mg/dL (NEG) Urine Blood Negative (NEG) Urine Nitrite Positive (NEG) Urine Bilirubin Negative (NEG) Urine Urobilinogen Dipstick 0.2 mg/dL (0.2 mg/dL) Urine Leukocyte Esterase Negative (NEG) Urine RBC 0 /HPF (0-2) Urine WBC Occ /HPF (0-4) Urine Squamous Epithelial Cells Mod /LPF Urine Bacteria Many /HPF (0-FEW) White Blood Count 10.0 x10^3/uL (4.0-11.0) Red Blood Count 5.08 x10^6/uL (3.50-5.40) Hemoglobin 14.4 g/dL (12.0-15.5) Hematocrit 44.2 % (36.0-47.0) Mean Corpuscular Volume 87 fL (79-100) Mean Corpuscular Hemoglobin 28 pg (25-35) Mean Corpuscular Hemoglobin Concent 33 g/dL (31-37) Red Cell Distribution Width 15.6 % (11.5-14.5) Platelet Count 215 x10^3/uL (140-400) Neutrophils (%) (Auto) 60 % (31-73) Lymphocytes (%) (Auto) 29 % (24-48) Monocytes (%) (Auto) 7 % (0-9) Eosinophils (%) (Auto) 3 % (0-3) Basophils (%) (Auto) 1 % (0-3) Neutrophils # (Auto) 6.0 x10^3uL (1.8-7.7) Lymphocytes # (Auto) 2.9 x10^3/uL (1.0-4.8) Monocytes # (Auto) 0.7 x10^3/uL (0.0-1.1) Eosinophils # (Auto) 0.3 x10^3/uL (0.0-0.7) Basophils # (Auto) 0.1 x10^3/uL (0.0-0.2) Sodium Level 142 mmol/L (136-145) Potassium Level 3.5 mmol/L (3.5-5.1) Chloride Level 104 mmol/L (98-107) Carbon Dioxide Level 26 mmol/L (21-32) Anion Gap 12 (6-14) Blood Urea Nitrogen 12 mg/dL (7-20) Creatinine 0.9 mg/dL (0.6-1.0) Estimated GFR (Cockcroft-Gault) 77.0 BUN/Creatinine Ratio 13 (6-20) Glucose Level 106 mg/dL (70-99) Calcium Level 9.7 mg/dL (8.5-10.1) Magnesium Level 2.0 mg/dL (1.8-2.4) Total Bilirubin 0.6 mg/dL (0.2-1.0) Aspartate Amino Transf (AST/SGOT) 21 U/L (15-37) Alanine Aminotransferase (ALT/SGPT) 24 U/L (14-59) Alkaline Phosphatase 73 U/L (46-116) Troponin I Quantitative 0.022 ng/mL (0.000-0.055) 0.022 ng/mL (0.000-0.055) Total Protein 8.2 g/dL (6.4-8.2) Albumin 3.6 g/dL (3.4-5.0) Albumin/Globulin Ratio 0.8 (1.0-1.7) Thyroid Stimulating Hormone (TSH) 2.294 uIU/mL (0.358-3.74) Triglycerides Level 77 mg/dL (0-150) Cholesterol Level 175 mg/dL (0-200) LDL Cholesterol, Calculated 120 mg/dL (0-100) VLDL Cholesterol, Calculated 15 mg/dL (0-40) Non-HDL Cholesterol Calculated 135 mg/dL (0-129) HDL Cholesterol 40 mg/dL (40-60) Cholesterol/HDL Ratio 4.4 Laboratory Tests Test 08/13/18 19:05 08/13/18 20:14 08/13/18 21:40 08/14/18 10:22 Urine Collection Type Unknown Urine Color Yellow Urine Clarity Clear Urine pH 7.0 Urine Specific [place] 1.015 Urine Protein Negative mg/dL (NEG-TRACE) Urine Glucose (UA) Negative mg/dL (NEG) Urine Ketones (Stick) Negative mg/dL (NEG) Urine Blood Negative (NEG) Urine Nitrite Positive (NEG) Urine Bilirubin Negative (NEG) Urine Urobilinogen Dipstick 0.2 mg/dL (0.2 mg/dL) Urine Leukocyte Esterase Negative (NEG) Urine RBC 0 /HPF (0-2) Urine WBC Occ /HPF (0-4) Urine Squamous Epithelial Cells Mod /LPF Urine Bacteria Many /HPF (0-FEW) White Blood Count 10.0 x10^3/uL (4.0-11.0) Red Blood Count 5.08 x10^6/uL (3.50-5.40) Hemoglobin 14.4 g/dL (12.0-15.5) Hematocrit 44.2 % (36.0-47.0) Mean Corpuscular Volume 87 fL (79-100) Mean Corpuscular Hemoglobin 28 pg (25-35) Mean Corpuscular Hemoglobin Concent 33 g/dL (31-37) Red Cell Distribution Width 15.6 % (11.5-14.5) Platelet Count 215 x10^3/uL (140-400) Neutrophils (%) (Auto) 60 % (31-73) Lymphocytes (%) (Auto) 29 % (24-48) Monocytes (%) (Auto) 7 % (0-9) Eosinophils (%) (Auto) 3 % (0-3) Basophils (%) (Auto) 1 % (0-3) Neutrophils # (Auto) 6.0 x10^3uL (1.8-7.7) Lymphocytes # (Auto) 2.9 x10^3/uL (1.0-4.8) Monocytes # (Auto) 0.7 x10^3/uL (0.0-1.1) Eosinophils # (Auto) 0.3 x10^3/uL (0.0-0.7) Basophils # (Auto) 0.1 x10^3/uL (0.0-0.2) Sodium Level 142 mmol/L (136-145) Potassium Level 3.5 mmol/L (3.5-5.1) Chloride Level 104 mmol/L (98-107) Carbon Dioxide Level 26 mmol/L (21-32) Anion Gap 12 (6-14) Blood Urea Nitrogen 12 mg/dL (7-20) Creatinine 0.9 mg/dL (0.6-1.0) Estimated GFR (Cockcroft-Gault) 77.0 BUN/Creatinine Ratio 13 (6-20) Glucose Level 106 mg/dL (70-99) Calcium Level 9.7 mg/dL (8.5-10.1) Magnesium Level 2.0 mg/dL (1.8-2.4) Total Bilirubin 0.6 mg/dL (0.2-1.0) Aspartate Amino Transf (AST/SGOT) 21 U/L (15-37) Alanine Aminotransferase (ALT/SGPT) 24 U/L (14-59) Alkaline Phosphatase 73 U/L (46-116) Troponin I Quantitative 0.022 ng/mL (0.000-0.055) 0.022 ng/mL (0.000-0.055) Total Protein 8.2 g/dL (6.4-8.2) Albumin 3.6 g/dL (3.4-5.0) Albumin/Globulin Ratio 0.8 (1.0-1.7) Thyroid Stimulating Hormone (TSH) 2.294 uIU/mL (0.358-3.74) Triglycerides Level 77 mg/dL (0-150) Cholesterol Level 175 mg/dL (0-200) LDL Cholesterol, Calculated 120 mg/dL (0-100) VLDL Cholesterol, Calculated 15 mg/dL (0-40) Non-HDL Cholesterol Calculated 135 mg/dL (0-129) HDL Cholesterol 40 mg/dL (40-60) Cholesterol/HDL Ratio 4.4 LUCI KEATING MD August 14, 2018 14:56
--- NOTE | 2018-08-14 15:23 | RAD ---
MRI of the brain without contrast 08/14/2018 Clinical History: Hypertension. CVA. Technique: Unenhanced T1-weighted sagittal and axial, T2-weighted axial and coronal and FLAIR, gradient echo and diffusion-weighted axial images of the brain were obtained. Findings: Comparison study is dated 03/04/2015. There is generalized parenchymal atrophy. Patchy, confluent and multiple focal areas of increased signal intensity are seen within the periventricular and subcortical white matter of both cerebral hemispheres along with the lauren on the FLAIR and T2-weighted images consistent with areas of extensive small vessel ischemic disease. Innumerable focal areas of markedly decreased signal intensity are seen scattered throughout the cerebellum, lauren, midbrain and both cerebral hemispheres on the gradient echo images. These measure 1 mm to 1.2 cm in size. They have increased substantially in number since the previous examination. They are felt to most likely reflect areas of previous microhemorrhage. They could be seen in the setting of hypertensive microangiopathy and/or cerebral amyloid angiopathy. No acute parenchymal abnormality is definitely seen. No extra-axial fluid collection is seen. There is no MRI evidence of acute ischemia/infarction. Mild mucosal thickening is scattered throughout the paranasal sinuses. There are minimal bilateral mastoid effusions. Normal flow voids are seen within the major vascular structures surrounding the brain parenchyma. Impression: No acute parenchymal abnormality is seen. Electronically signed by: Kwasi Sanchez MD (08/14/2018 3:20 PM) [id number]
--- NOTE | 2018-08-14 16:25 | NUR ---
SW following. Discussed with RN, SW met with pt, to give self pay resources. Pt had questions about insurance, and is working on applying for medicare. Pt denied any further SW needs.
[2018-08-14 17:23] LABS: BARBITURATES NEG (NEG); BENZODIAZEPINES NEG (NEG); CANNABINOIDS NEG (NEG); COCAINE NEG (NEG); METHADONE NEG (NEG); OPIATES NEG (NEG); PHENCYCLIDINE NEG (NEG)
[2018-08-14 17:24] LABS: AMPHETAMINE/METHAMPHETAMINE NEG (NEG)
[2018-08-15] VITALS (8 sets, daily range): BP systolic 159–195; BP diastolic 77–103
[2018-08-15] MEDS: diphenhydrAMINE 50 MG/ML VIAL IVP PRN (00:05)
[2018-08-15 05:20] LABS: BASO % 0 % (0-3); EOS % 0 % (0-3); HEMATOCRIT 42.6 % (36.0-47.0); HEMOGLOBIN 13.6 g/dL (12.0-15.5); LYMPH # 2.6 x10^3/uL (1.0-4.8); LYMPH % 15 % (24-48); MEAN CORPUSCULAR HEMOGLOBIN 28 pg (25-35); MEAN CORPUSCULAR HGB CONC 32 g/dL (31-37); MEAN CORPUSCULAR VOLUME 88 fL (79-100); MONO # 1.2 x10^3/uL (0.0-1.1); MONO % 7 % (0-9); NEUT # 13.2 x10^3uL (1.8-7.7); NEUT % 78 % (31-73); PLATELET COUNT 214 x10^3/uL (140-400); RED BLOOD COUNT 4.83 x10^6/uL (3.50-5.40); RED CELL DISTRIBUTION WIDTH 15.8 % (11.5-14.5)
[2018-08-15 06:04] LABS: ALBUMIN 3.2 g/dL (3.4-5.0); ALBUMIN/GLOBULIN RATIO 0.7 (1.0-1.7); CALCIUM 9.9 mg/dL (8.5-10.1); CREATININE 1.2 mg/dL (0.6-1.0); GFR 55.3; POTASSIUM 3.9 mmol/L (3.5-5.1); TOTAL BILIRUBIN 0.4 mg/dL (0.2-1.0); TOTAL PROTEIN 7.5 g/dL (6.4-8.2)
[2018-08-15] MEDS: LISINOPRIL 20 MG TABLET PO SCH (09:06)
[2018-08-15] MEDS: hydroCHLOROthiazide 12.5 MG CAPSULE PO SCH (09:07)
[2018-08-15] MEDS: ACETAMINOPHEN 325 MG TABLET. PO PRN ×2 (09:16→20:31)
--- NOTE | 2018-08-15 10:49 | PDOC ---
PROGRESS NOTES Chief Complaint Chief Complaint HTN emergency Small punctate microhemorrhages in the brain in the background of hypertensive emergency Obesity, BMI 39 Labetalol allergy History of Present Illness History of Present Illness Blood pressure better, 160 systolic from [address] scan head shows maybe small multiple punctuate hemorrhages but MRI brain shows no acute pathology Still some headache but much better Plan: Increase lisinopril dose, increase HCTZ to 25 Don't discharge yet today blood pressure still the high side in the background of punctate hemorrhages Hopefully might be able to DC tomorrow Appreciate neurology and cardiology Echo done but read pending Dw her agreeable No PT needs NO ASA for now Vitals Vitals Vital Signs Date Time Temp Pulse Resp B/P (MAP) Pulse Ox O2 Delivery O2 Flow Rate FiO2 08/15/18 09:06 118 176/99 08/15/18 07:40 98.0 18 95 Room Air 98.0 Physical Exam General: Alert, Oriented X3 Heart: Regular rate Lungs: Clear Abdomen: Soft, No tenderness Extremities: No edema Skin: No rashes, No breakdown, No significant lesion Labs LABS Laboratory Tests Test 08/14/18 16:45 08/15/18 04:10 Urine Opiates Screen Neg (NEG) Urine Methadone Screen Neg (NEG) Urine Barbiturates Neg (NEG) Urine Phencyclidine Screen Neg (NEG) Urine Amphetamine/Methamphetamine Neg (NEG) Urine Benzodiazepines Screen Neg (NEG) Urine Cocaine Screen Neg (NEG) Urine Cannabinoids Screen Neg (NEG) Urine Ethyl Alcohol Neg (NEG) White Blood Count 17.0 x10^3/uL (4.0-11.0) Red Blood Count 4.83 x10^6/uL (3.50-5.40) Hemoglobin 13.6 g/dL (12.0-15.5) Hematocrit 42.6 % (36.0-47.0) Mean Corpuscular Volume 88 fL (79-100) Mean Corpuscular Hemoglobin 28 pg (25-35) Mean Corpuscular Hemoglobin Concent 32 g/dL (31-37) Red Cell Distribution Width 15.8 % (11.5-14.5) Platelet Count 214 x10^3/uL (140-400) Neutrophils (%) (Auto) 78 % (31-73) Lymphocytes (%) (Auto) 15 % (24-48) Monocytes (%) (Auto) 7 % (0-9) Eosinophils (%) (Auto) 0 % (0-3) Basophils (%) (Auto) 0 % (0-3) Neutrophils # (Auto) 13.2 x10^3uL (1.8-7.7) Lymphocytes # (Auto) 2.6 x10^3/uL (1.0-4.8) Monocytes # (Auto) 1.2 x10^3/uL (0.0-1.1) Eosinophils # (Auto) 0.0 x10^3/uL (0.0-0.7) Basophils # (Auto) 0.0 x10^3/uL (0.0-0.2) Sodium Level 142 mmol/L (136-145) Potassium Level 3.9 mmol/L (3.5-5.1) Chloride Level 106 mmol/L (98-107) Carbon Dioxide Level 25 mmol/L (21-32) Anion Gap 11 (6-14) Blood Urea Nitrogen 24 mg/dL (7-20) Creatinine 1.2 mg/dL (0.6-1.0) Estimated GFR (Cockcroft-Gault) 55.3 BUN/Creatinine Ratio 20 (6-20) Glucose Level 127 mg/dL (70-99) Calcium Level 9.9 mg/dL (8.5-10.1) Total Bilirubin 0.4 mg/dL (0.2-1.0) Aspartate Amino Transf (AST/SGOT) 19 U/L (15-37) Alanine Aminotransferase (ALT/SGPT) 21 U/L (14-59) Alkaline Phosphatase 64 U/L (46-116) Total Protein 7.5 g/dL (6.4-8.2) Albumin 3.2 g/dL (3.4-5.0) Albumin/Globulin Ratio 0.7 (1.0-1.7) Review of Systems Review of Systems headache, the rest of ROS 14 point negative Assessment and Plan Assessmemt and Plan Problems Medical Problems: (1) Hypertensive crisis Status: Acute (2) UTI (urinary tract infection) Status: Acute Comment Review of Relevant I have reviewed the following items rodrigue (where applicable) has been applied. Labs Laboratory Tests Test 08/13/18 19:05 08/13/18 20:14 08/13/18 21:40 08/14/18 10:22 Urine Collection Type Unknown Urine Color Yellow Urine Clarity Clear Urine pH 7.0 Urine Specific Dalton 1.015 Urine Protein Negative mg/dL (NEG-TRACE) Urine Glucose (UA) Negative mg/dL (NEG) Urine Ketones (Stick) Negative mg/dL (NEG) Urine Blood Negative (NEG) Urine Nitrite Positive (NEG) Urine Bilirubin Negative (NEG) Urine Urobilinogen Dipstick 0.2 mg/dL (0.2 mg/dL) Urine Leukocyte Esterase Negative (NEG) Urine RBC 0 /HPF (0-2) Urine WBC Occ /HPF (0-4) Urine Squamous Epithelial Cells Mod /LPF Urine Bacteria Many /HPF (0-FEW) White Blood Count 10.0 x10^3/uL (4.0-11.0) Red Blood Count 5.08 x10^6/uL (3.50-5.40) Hemoglobin 14.4 g/dL (12.0-15.5) Hematocrit 44.2 % (36.0-47.0) Mean Corpuscular Volume 87 fL (79-100) Mean Corpuscular Hemoglobin 28 pg (25-35) Mean Corpuscular Hemoglobin Concent 33 g/dL (31-37) Red Cell Distribution Width 15.6 % (11.5-14.5) Platelet Count 215 x10^3/uL (140-400) Neutrophils (%) (Auto) 60 % (31-73) Lymphocytes (%) (Auto) 29 % (24-48) Monocytes (%) (Auto) 7 % (0-9) Eosinophils (%) (Auto) 3 % (0-3) Basophils (%) (Auto) 1 % (0-3) Neutrophils # (Auto) 6.0 x10^3uL (1.8-7.7) Lymphocytes # (Auto) 2.9 x10^3/uL (1.0-4.8) Monocytes # (Auto) 0.7 x10^3/uL (0.0-1.1) Eosinophils # (Auto) 0.3 x10^3/uL (0.0-0.7) Basophils # (Auto) 0.1 x10^3/uL (0.0-0.2) Sodium Level 142 mmol/L (136-145) Potassium Level 3.5 mmol/L (3.5-5.1) Chloride Level 104 mmol/L (98-107) Carbon Dioxide Level 26 mmol/L (21-32) Anion Gap 12 (6-14) Blood Urea Nitrogen 12 mg/dL (7-20) Creatinine 0.9 mg/dL (0.6-1.0) Estimated GFR (Cockcroft-Gault) 77.0 BUN/Creatinine Ratio 13 (6-20) Glucose Level 106 mg/dL (70-99) Calcium Level 9.7 mg/dL (8.5-10.1) Magnesium Level 2.0 mg/dL (1.8-2.4) Total Bilirubin 0.6 mg/dL (0.2-1.0) Aspartate Amino Transf (AST/SGOT) 21 U/L (15-37) Alanine Aminotransferase (ALT/SGPT) 24 U/L (14-59) Alkaline Phosphatase 73 U/L (46-116) Troponin I Quantitative 0.022 ng/mL (0.000-0.055) 0.022 ng/mL (0.000-0.055) Total Protein 8.2 g/dL (6.4-8.2) Albumin 3.6 g/dL (3.4-5.0) Albumin/Globulin Ratio 0.8 (1.0-1.7) Thyroid Stimulating Hormone (TSH) 2.294 uIU/mL (0.358-3.74) Triglycerides Level 77 mg/dL (0-150) Cholesterol Level 175 mg/dL (0-200) LDL Cholesterol, Calculated 120 mg/dL (0-100) VLDL Cholesterol, Calculated 15 mg/dL (0-40) Non-HDL Cholesterol Calculated 135 mg/dL (0-129) HDL Cholesterol 40 mg/dL (40-60) Cholesterol/HDL Ratio 4.4 Test 08/14/18 16:45 08/15/18 04:10 Urine Opiates Screen Neg (NEG) Urine Methadone Screen Neg (NEG) Urine Barbiturates Neg (NEG) Urine Phencyclidine Screen Neg (NEG) Urine Amphetamine/Methamphetamine Neg (NEG) Urine Benzodiazepines Screen Neg (NEG) Urine Cocaine Screen Neg (NEG) Urine Cannabinoids Screen Neg (NEG) Urine Ethyl Alcohol Neg (NEG) White Blood Count 17.0 x10^3/uL (4.0-11.0) Red Blood Count 4.83 x10^6/uL (3.50-5.40) Hemoglobin 13.6 g/dL (12.0-15.5) Hematocrit 42.6 % (36.0-47.0) Mean Corpuscular Volume 88 fL (79-100) Mean Corpuscular Hemoglobin 28 pg (25-35) Mean Corpuscular Hemoglobin Concent 32 g/dL (31-37) Red Cell Distribution Width 15.8 % (11.5-14.5) Platelet Count 214 x10^3/uL (140-400) Neutrophils (%) (Auto) 78 % (31-73) Lymphocytes (%) (Auto) 15 % (24-48) Monocytes (%) (Auto) 7 % (0-9) Eosinophils (%) (Auto) 0 % (0-3) Basophils (%) (Auto) 0 % (0-3) Neutrophils # (Auto) 13.2 x10^3uL (1.8-7.7) Lymphocytes # (Auto) 2.6 x10^3/uL (1.0-4.8) Monocytes # (Auto) 1.2 x10^3/uL (0.0-1.1) Eosinophils # (Auto) 0.0 x10^3/uL (0.0-0.7) Basophils # (Auto) 0.0 x10^3/uL (0.0-0.2) Sodium Level 142 mmol/L (136-145) Potassium Level 3.9 mmol/L (3.5-5.1) Chloride Level 106 mmol/L (98-107) Carbon Dioxide Level 25 mmol/L (21-32) Anion Gap 11 (6-14) Blood Urea Nitrogen 24 mg/dL (7-20) Creatinine 1.2 mg/dL (0.6-1.0) Estimated GFR (Cockcroft-Gault) 55.3 BUN/Creatinine Ratio 20 (6-20) Glucose Level 127 mg/dL (70-99) Calcium Level 9.9 mg/dL (8.5-10.1) Total Bilirubin 0.4 mg/dL (0.2-1.0) Aspartate Amino Transf (AST/SGOT) 19 U/L (15-37) Alanine Aminotransferase (ALT/SGPT) 21 U/L (14-59) Alkaline Phosphatase 64 U/L (46-116) Total Protein 7.5 g/dL (6.4-8.2) Albumin 3.2 g/dL (3.4-5.0) Albumin/Globulin Ratio 0.7 (1.0-1.7) Laboratory Tests Test 08/14/18 16:45 08/15/18 04:10 Urine Opiates Screen Neg (NEG) Urine Methadone Screen Neg (NEG) Urine Barbiturates Neg (NEG) Urine Phencyclidine Screen Neg (NEG) Urine Amphetamine/Methamphetamine Neg (NEG) Urine Benzodiazepines Screen Neg (NEG) Urine Cocaine Screen Neg (NEG) Urine Cannabinoids Screen Neg (NEG) Urine Ethyl Alcohol Neg (NEG) White Blood Count 17.0 x10^3/uL (4.0-11.0) Red Blood Count 4.83 x10^6/uL (3.50-5.40) Hemoglobin 13.6 g/dL (12.0-15.5) Hematocrit 42.6 % (36.0-47.0) Mean Corpuscular Volume 88 fL (79-100) Mean Corpuscular Hemoglobin 28 pg (25-35) Mean Corpuscular Hemoglobin Concent 32 g/dL (31-37) Red Cell Distribution Width 15.8 % (11.5-14.5) Platelet Count 214 x10^3/uL (140-400) Neutrophils (%) (Auto) 78 % (31-73) Lymphocytes (%) (Auto) 15 % (24-48) Monocytes (%) (Auto) 7 % (0-9) Eosinophils (%) (Auto) 0 % (0-3) Basophils (%) (Auto) 0 % (0-3) Neutrophils # (Auto) 13.2 x10^3uL (1.8-7.7) Lymphocytes # (Auto) 2.6 x10^3/uL (1.0-4.8) Monocytes # (Auto) 1.2 x10^3/uL (0.0-1.1) Eosinophils # (Auto) 0.0 x10^3/uL (0.0-0.7) Basophils # (Auto) 0.0 x10^3/uL (0.0-0.2) Sodium Level 142 mmol/L (136-145) Potassium Level 3.9 mmol/L (3.5-5.1) Chloride Level 106 mmol/L (98-107) Carbon Dioxide Level 25 mmol/L (21-32) Anion Gap 11 (6-14) Blood Urea Nitrogen 24 mg/dL (7-20) Creatinine 1.2 mg/dL (0.6-1.0) Estimated GFR (Cockcroft-Gault) 55.3 BUN/Creatinine Ratio 20 (6-20) Glucose Level 127 mg/dL (70-99) Calcium Level 9.9 mg/dL (8.5-10.1) Total Bilirubin 0.4 mg/dL (0.2-1.0) Aspartate Amino Transf (AST/SGOT) 19 U/L (15-37) Alanine Aminotransferase (ALT/SGPT) 21 U/L (14-59) Alkaline Phosphatase 64 U/L (46-116) Total Protein 7.5 g/dL (6.4-8.2) Albumin 3.2 g/dL (3.4-5.0) Albumin/Globulin Ratio 0.7 (1.0-1.7) Medications Current Medications Hydralazine HCl (Apresoline Inj) 10 mg 1X ONCE IVP Last administered on 08/13/18at 22:05; Start 08/13/18 at 19:45; Stop 08/13/18 at 19:47; Status DC Fentanyl Citrate (Fentanyl 2ml Vial) 50 mcg 1X ONCE IV ; Start 08/13/18 at 19:45; Stop 08/13/18 at 19:47; Status DC Ondansetron HCl (Zofran) 4 mg 1X ONCE IV ; Start 08/13/18 at 19:45; Stop 08/13/18 at 19:47; Status DC Clonidine HCl (Catapres) 0.2 mg 1X ONCE PO Last administered on 08/13/18at 21:02; Start 08/13/18 at 21:30; Stop 08/13/18 at 21:31; Status DC Clonidine HCl (Catapres) 0.1 mg STK-MED ONCE .ROUTE ; Start 08/13/18 at 21:01; Stop 08/13/18 at 21:02; Status DC Ceftriaxone Sodium (Rocephin) 1 gm 1X ONCE IVP Last administered on 08/13/18at 23:36; Start 08/13/18 at 23:00; Stop 08/13/18 at 23:01; Status DC Ondansetron HCl (Zofran) 4 mg PRN Q8HRS PRN IV NAUSEA/VOMITING 1ST CHOICE Last administered on 08/14/18at 05:40; Start 08/14/18 at 00:15; Stop 08/14/18 at 07:32; Status DC Fentanyl Citrate (Fentanyl 2ml Vial) 50 mcg PRN Q1HR PRN IV SEVERE PAIN; Start 08/14/18 at 00:15; Stop 08/15/18 at 00:14; Status DC Labetalol HCl (Normodyne Iv Push) 20 mg PRN Q2HR PRN IVP HYPERTENSION Last administered on 08/14/18at 03:06; Start 08/14/18 at 03:00; Stop 08/14/18 at 04: 57; Status DC Acetaminophen (Tylenol) 650 mg PRN Q6HRS PRN PO HEADACHE Last administered on 08/15/18at 09:16; Start 08/14/18 at 03:00 Methylprednisolone Sodium Succinate (SOLU-Medrol 125MG VIAL) 125 mg 1X ONCE IV Last administered on 08/14/18at 05:41; Start 08/14/18 at 05:15; Stop 08/14/18 at 05:16; Status DC Diphenhydramine HCl (Benadryl) 50 mg 1X ONCE IVP Last administered on 08/14/18at 05:41; Start 08/14/18 at 05:15; Stop 08/14/18 at 05:16; Status DC Diphenhydramine HCl (Benadryl) 25 mg PRN Q6HRS PRN IVP ITCHING Last administered on 08/15/18at 00:05; Start 08/14/18 at 05:00 Hydralazine HCl (Apresoline Inj) 10 mg PRN Q6HRS PRN IVP ELEVATED BP, SEE COMMENTS Last administered on 08/14/18at 22:55; Start 08/14/18 at 05:00 Ondansetron HCl (Zofran) 4 mg PRN Q6HRS PRN IV NAUSEA/VOMITING 1ST CHOICE; Start 08/14/18 at 07:45 Lisinopril (Prinivil) 10 mg DAILY PO Last administered on 08/14/18at 08:40; Start 08/14/18 at 09:00; Stop 08/15/18 at 08:09; Status DC Hydrochlorothiazide (Microzide) 12.5 mg DAILY PO Last administered on 08/14/18at 08:40; Start 08/14/18 at 09:00; Stop 08/15/18 at 08:09; Status DC Hydrochlorothiazide (Microzide) 25 mg DAILY PO Last administered on 08/15/18at 09:07; Start 08/15/18 at 09:00 Lisinopril (Prinivil) 20 mg DAILY PO Last administered on 08/15/18at 09:06; Start 08/15/18 at 09:00 Active Scripts Active Vitals/I & O Vital Sign - Last 24 Hours 08/14/18 08/14/18 08/14/18 08/14/18 11:00 15:00 19:51 20:00 Temp 98.6 98.3 98.3 98.6 98.3 98.3 Pulse 82 101 97 Resp 18 18 18 B/P (MAP) 159/84 (109) 190/90 (123) 227/118 (154) Pulse Ox 96 97 95 O2 Delivery Room Air Room Air Room Air Room Air 08/14/18 08/14/18 08/15/18 08/15/18 22:55 23:48 03:50 07:40 Temp 98.5 97.6 98.0 98.5 97.6 98.0 Pulse 97 101 92 118 Resp 18 18 18 B/P (MAP) 227/118 137/94 (108) 163/78 (106) 176/99 (124) Pulse Ox 98 94 95 O2 Delivery Room Air Room Air Room Air 08/15/18 09:06 Pulse 118 B/P (MAP) 176/99 Intake and Output 08/14/18 08/14/18 08/15/18 15:00 23:00 07:00 Intake Total 50 ml 200 ml Balance 50 ml 200 ml KAYLA HI MD August 15, 2018 10:49
[2018-08-15 11:34] LABS: % BANDS 6 % (0-9); % BASOS 1 % (0-3); % LYMPHS 18 % (24-48); % MONOS 5 % (0-10); % SEGS 70 % (35-66); PLT ESTIMATE ADEQUATE (ADEQUATE)
[2018-08-15 11:35] LABS: ANISOCYTOSIS SLIGHT
[2018-08-15] MEDS: hydrALAZINE 20 MG/ML VIAL. IVP PRN ×2 (16:03→23:06)
[2018-08-16] VITALS (7 sets, daily range): BP systolic 139–182; BP diastolic 71–96
[2018-08-16] MEDS: ONDANSETRON PF 4 MG/2 ML VIAL. IV PRN ×2 (01:58→14:51)
[2018-08-16] MEDS: ACETAMINOPHEN 325 MG TABLET. PO PRN (06:41)
[2018-08-16] MEDS: hydroCHLOROthiazide 12.5 MG CAPSULE PO SCH (08:28)
[2018-08-16] MEDS: LISINOPRIL 20 MG TABLET PO SCH (08:29)
[2018-08-16] MEDS: hydrALAZINE 20 MG/ML VIAL. IVP PRN (08:29)
[2018-08-16] MEDS: amLODIPine BESYLATE 10 MG TABLET PO SCH (10:47)
--- NOTE | 2018-08-16 11:34 | PDOC ---
PROGRESS NOTES Chief Complaint Chief Complaint HTN emergency Small punctate microhemorrhages in the brain in the background of hypertensive emergency Obesity, BMI 39 Labetalol allergy History of Present Illness History of Present Illness Blood Pressure still high Headaches I cannot give NSAIDs for headaches because of punctate hemorrhages on CAT scan On HCTZ 25, lisinopril 20 Plan Start Norvasc 10 Trial of Lortab and fentanyl Echo still pending Cannot DC, blood pressure still 180s, headaches Vitals Vitals Vital Signs Date Time Temp Pulse Resp B/P (MAP) Pulse Ox O2 Delivery O2 Flow Rate FiO2 08/16/18 10:47 94 152/96 08/16/18 08:15 Room Air 08/16/18 07:00 98.1 16 90 98.1 Physical Exam General: Alert, Oriented X3 Heart: Regular rate Lungs: Clear Abdomen: Soft, No tenderness Extremities: No edema Skin: No rashes, No breakdown, No significant lesion Review of Systems Review of Systems headaches, the rest of ROS 14 point negative Assessment and Plan Assessmemt and Plan Problems Medical Problems: (1) Hypertensive crisis Status: Acute (2) UTI (urinary tract infection) Status: Acute Comment Review of Relevant I have reviewed the following items rodrigue (where applicable) has been applied. Labs Laboratory Tests Test 08/14/18 16:45 08/15/18 04:10 Urine Opiates Screen Neg (NEG) Urine Methadone Screen Neg (NEG) Urine Barbiturates Neg (NEG) Urine Phencyclidine Screen Neg (NEG) Urine Amphetamine/Methamphetamine Neg (NEG) Urine Benzodiazepines Screen Neg (NEG) Urine Cocaine Screen Neg (NEG) Urine Cannabinoids Screen Neg (NEG) Urine Ethyl Alcohol Neg (NEG) White Blood Count 17.0 x10^3/uL (4.0-11.0) Red Blood Count 4.83 x10^6/uL (3.50-5.40) Hemoglobin 13.6 g/dL (12.0-15.5) Hematocrit 42.6 % (36.0-47.0) Mean Corpuscular Volume 88 fL (79-100) Mean Corpuscular Hemoglobin 28 pg (25-35) Mean Corpuscular Hemoglobin Concent 32 g/dL (31-37) Red Cell Distribution Width 15.8 % (11.5-14.5) Platelet Count 214 x10^3/uL (140-400) Neutrophils (%) (Auto) 78 % (31-73) Lymphocytes (%) (Auto) 15 % (24-48) Monocytes (%) (Auto) 7 % (0-9) Eosinophils (%) (Auto) 0 % (0-3) Basophils (%) (Auto) 0 % (0-3) Neutrophils # (Auto) 13.2 x10^3uL (1.8-7.7) Lymphocytes # (Auto) 2.6 x10^3/uL (1.0-4.8) Monocytes # (Auto) 1.2 x10^3/uL (0.0-1.1) Eosinophils # (Auto) 0.0 x10^3/uL (0.0-0.7) Basophils # (Auto) 0.0 x10^3/uL (0.0-0.2) Segmented Neutrophils % 70 % (35-66) Band Neutrophils % 6 % (0-9) Lymphocytes % 18 % (24-48) Monocytes % 5 % (0-10) Basophils % 1 % (0-3) Platelet Estimate Adequate (ADEQUATE) Anisocytosis Slight Sodium Level 142 mmol/L (136-145) Potassium Level 3.9 mmol/L (3.5-5.1) Chloride Level 106 mmol/L (98-107) Carbon Dioxide Level 25 mmol/L (21-32) Anion Gap 11 (6-14) Blood Urea Nitrogen 24 mg/dL (7-20) Creatinine 1.2 mg/dL (0.6-1.0) Estimated GFR (Cockcroft-Gault) 55.3 BUN/Creatinine Ratio 20 (6-20) Glucose Level 127 mg/dL (70-99) Calcium Level 9.9 mg/dL (8.5-10.1) Total Bilirubin 0.4 mg/dL (0.2-1.0) Aspartate Amino Transf (AST/SGOT) 19 U/L (15-37) Alanine Aminotransferase (ALT/SGPT) 21 U/L (14-59) Alkaline Phosphatase 64 U/L (46-116) Total Protein 7.5 g/dL (6.4-8.2) Albumin 3.2 g/dL (3.4-5.0) Albumin/Globulin Ratio 0.7 (1.0-1.7) Microbiology 08/13/18 Urine Culture - Preliminary, Resulted 08/13/18 Urine Culture Result 1 (DIRK) - Preliminary, Resulted Medications Current Medications Hydralazine HCl (Apresoline Inj) 10 mg 1X ONCE IVP Last administered on 08/13/18at 22:05; Start 08/13/18 at 19:45; Stop 08/13/18 at 19:47; Status DC Fentanyl Citrate (Fentanyl 2ml Vial) 50 mcg 1X ONCE IV ; Start 08/13/18 at 19:45; Stop 08/13/18 at 19:47; Status DC Ondansetron HCl (Zofran) 4 mg 1X ONCE IV ; Start 08/13/18 at 19:45; Stop 08/13/18 at 19:47; Status DC Clonidine HCl (Catapres) 0.2 mg 1X ONCE PO Last administered on 08/13/18at 21:02; Start 08/13/18 at 21:30; Stop 08/13/18 at 21:31; Status DC Clonidine HCl (Catapres) 0.1 mg STK-MED ONCE .ROUTE ; Start 08/13/18 at 21:01; Stop 08/13/18 at 21:02; Status DC Ceftriaxone Sodium (Rocephin) 1 gm 1X ONCE IVP Last administered on 08/13/18at 23:36; Start 08/13/18 at 23:00; Stop 08/13/18 at 23:01; Status DC Ondansetron HCl (Zofran) 4 mg PRN Q8HRS PRN IV NAUSEA/VOMITING 1ST CHOICE Last administered on 08/14/18at 05:40; Start 08/14/18 at 00:15; Stop 08/14/18 at 07:32; Status DC Fentanyl Citrate (Fentanyl 2ml Vial) 50 mcg PRN Q1HR PRN IV SEVERE PAIN; Start 08/14/18 at 00:15; Stop 08/15/18 at 00:14; Status DC Labetalol HCl (Normodyne Iv Push) 20 mg PRN Q2HR PRN IVP HYPERTENSION Last administered on 08/14/18at 03:06; Start 08/14/18 at 03:00; Stop 08/14/18 at 04:57; Status DC Acetaminophen (Tylenol) 650 mg PRN Q6HRS PRN PO HEADACHE Last administered on 08/16/18at 06:41; Start 08/14/18 at 03:00 Methylprednisolone Sodium Succinate (SOLU-Medrol 125MG VIAL) 125 mg 1X ONCE IV Last administered on 08/14/18 05:41; Start 08/14/18 at 05:15; Stop 08/14/18 at 05:16; Status DC Diphenhydramine HCl (Benadryl) 50 mg 1X ONCE IVP Last administered on 08/14/18at 05:41; Start 08/14/18 at 05:15; Stop 08/14/18 at 05:16; Status DC Diphenhydramine HCl (Benadryl) 25 mg PRN Q6HRS PRN IVP ITCHING Last administered on 08/15/18at 00:05; Start 08/14/18 at 05:00 Hydralazine HCl (Apresoline Inj) 10 mg PRN Q6HRS PRN IVP ELEVATED BP, SEE COMMENTS Last administered on 08/16/18at 08:29; Start 08/14/18 at 05:00 Ondansetron HCl (Zofran) 4 mg PRN Q6HRS PRN IV NAUSEA/VOMITING 1ST CHOICE Last administered on 08/16/18at 01:58; Start 08/14/18 at 07:45 Lisinopril (Prinivil) 10 mg DAILY PO Last administered on 08/14/18 08:40; Start 08/14/18 at 09:00; Stop 08/15/18 at 08:09; Status DC Hydrochlorothiazide (Microzide) 12.5 mg DAILY PO Last administered on 08/14/18at 08:40; Start 08/14/18 at 09:00; Stop 08/15/18 at 08:09; Status DC Hydrochlorothiazide (Microzide) 25 mg DAILY PO Last administered on 08/16/18 08:28; Start 08/15/18 at 09:00 Lisinopril (Prinivil) 20 mg DAILY PO Last administered on 08/16/18 08:29; Start 08/15/18 at 09:00 Amlodipine Besylate (Norvasc) 10 mg DAILY PO Last administered on 08/16/18at 10:47; Start 08/16/18 at 09:30 Active Scripts Active Vitals/I & O Vital Sign - Last 24 Hours 08/15/18 08/15/18 08/15/18 08/15/18 15:45 16:00 16:03 18:08 Temp 98.2 98.2 Pulse 122 77 77 68 Resp 19 B/P (MAP) 186/99 (128) 172/103 (126) 172/103 159/89 (112) Pulse Ox 97 O2 Delivery Room Air 08/15/18 08/15/18 08/15/18 08/15/18 19:02 20:00 23:05 23:06 Temp 98.7 98.8 98.7 98.8 Pulse 79 82 82 Resp 18 B/P (MAP) 195/90 (125) 185/101 (129) 185/101 Pulse Ox 96 96 O2 Delivery Room Air Room Air Room Air 08/16/18 08/16/18 08/16/18 08/16/18 03:02 07:00 08:15 08:29 Temp 98.1 98.1 98.1 98.1 Pulse 89 92 92 Resp 16 16 B/P (MAP) 182/93 (122) 170/95 (120) 170/95 Pulse Ox 93 90 O2 Delivery Room Air Room Air Room Air 08/16/18 08/16/18 08:29 10:47 Pulse 92 94 B/P (MAP) 170/95 152/96 Intake and Output 08/15/18 08/15/18 08/16/18 15:00 23:00 07:00 Intake Total 1160 ml 560 ml 200 ml Output Total 3 ml Balance 1160 ml 557 ml 200 ml KAYLA HI MD August 16, 2018 11:34
[2018-08-16] MEDS ORDERED: fentaNYL PF VIAL 100 MCG/2 ML VIAL IV PRN (11:45)
[2018-08-16] MEDS ORDERED: HYDROcodone/APAP 5/325MG 1 TAB TABLET PO PRN (11:45)
[2018-08-16] MEDS: diphenhydrAMINE 50 MG/ML VIAL IVP PRN ×2 (14:51→22:02)
--- NOTE | 2018-08-16 15:00 | NUR ---
This nurse talked to Dr. Capps about patient's complaints of N/V, INGRAM, discussed repeat head CT, get BP below 140. This nurse will continue to monitor.
--- NOTE | 2018-08-16 16:11 | RAD ---
CT HEAD WO CONTRAST Clinical indications: Nausea and vomiting and headache. COMPARISON: August 14, [address] MRI study of the brain dated August 14, 2018. Technique: Noncontrast axial cross sectional scanning of the head was performed. PQRS compliance Statement One or more of the following individualized dose reduction techniques were utilized for this study: 1. Automated exposure control 2. Adjustment of the mA and/or kV according to patient size 3. Use of iterative reconstruction technique Findings: Again seen is a small subcentimeter hyperdense nodule of the posterior left parietal region. This is stable. This may represent a small focus of hemorrhage. No new focus of acute intracranial hemorrhage is seen. Moderate bilateral periventricular white matter hypodensity is again seen which is unchanged. No midline shift or mass effect or hydrocephalus or extra-axial fluid collection is seen. IMPRESSION: Stable small subcentimeter hyperintense nodule of the posterior left parietal region. This may represent a small focus of hemorrhage. MRI study demonstrated multiple areas of chronic microhemorrhage. No new acute intracranial hemorrhage is evident. No mass effect is seen. Stable head CT Electronically signed by: Guillermo Waite MD (08/16/2018 4:08 PM) [facility]
[2018-08-16] MEDS: cloNIDine HCL 0.1 MG TABLET PO SCH ×2 (16:17→22:02)
[2018-08-17] MEDS: hydrALAZINE 20 MG/ML VIAL. IVP PRN ×2 (00:20→21:24)
[2018-08-17 03:40] VITALS: BP 131/75
[2018-08-17] MEDS: cloNIDine HCL 0.1 MG TABLET PO SCH ×3 (06:25→21:23)
[2018-08-17 07:00] VITALS: BP 150/84
[2018-08-17] MEDS: hydroCHLOROthiazide 12.5 MG CAPSULE PO SCH (08:19)
[2018-08-17] MEDS: amLODIPine BESYLATE 10 MG TABLET PO SCH (08:20)
[2018-08-17] MEDS: LISINOPRIL 20 MG TABLET PO SCH (08:20)
[2018-08-17] MEDS ORDERED: HYDR12.575 PO (10:50)
[2018-08-17] MEDS ORDERED: HYDR-2761 PO (10:50)
[2018-08-17] MEDS ORDERED: AMLO10TA8 PO (10:50)
[2018-08-17] MEDS ORDERED: CLON0.1T12 PO (10:50)
[2018-08-17] MEDS ORDERED: LISI-130 PO (10:50)
--- NOTE | 2018-08-17 10:53 | PDOC3 ---
Discharge Summary Visit Information Date of Admission: August 14, 2018 Date of Discharge: August 17, 2018 Admitting Diagnosis Comment: HTN emergency Small punctate microhemorrhages in the brain in the background of hypertensive emergency Obesity, BMI 39 Labetalol allergy Final Diagnosis Problems Medical Problems: (1) Hypertensive crisis Status: Acute (2) UTI (urinary tract infection) Status: Acute Brief Hospital Course Allergies Allergies Coded Allergies Type Severity Reaction Last Updated Verified labetalol Allergy Intermediate Hives 08/14/18 Yes Vital Signs Vital Signs Date Time Temp Pulse Resp B/P (MAP) Pulse Ox O2 Delivery O2 Flow Rate FiO2 08/17/18 08:20 75 131/75 08/17/18 08:00 Room Air 08/17/18 07:00 98.1 12 90 98.1 Brief Hospital Course Ms. Pride is a 62 old [place] female who used to follow with Dr. Hernandez for hypertension was supposed to be on unrecalled dose of Norvasc. She comes in severe headache with blood pressure over 200 and evidence of small punctate hemorrhages on CAT scan. MRI showed the same but no acute ischemic infarct. Comanage with neurology. No aspirin for obvious reasons. It took me 3 days and 2 nights to control her blood pressure. She had svere allergy to labetolol pushes - had welts., Now she is on 4 different blood pressure regimens 3 of which are maximum dose. Heavy counseling and education done about following up with PCP or Dr Allison . (whenever is her choice regarding blood pressure). I don't want her to bottom out at home. She did have severe headache all throughout her stay and was advised lower blood pressure by neurology. Blood pressure on discharge 130/80 All for Rx on chart No aspirin or NSAIDs on discharge Discharge disposition home independent Discharge instructions follow-up PCP or Dr. Martinez in 4 weeks regarding blood pressure. DC time 32 minutes greater than 50% DC education counseling Discharge Information Condition at Discharge: Improved, Stable Follow Up: Weeks (pcp 4 weeks re BP) Disposition/Orders: D/C to Home Scheduled Amlodipine Besylate (Amlodipine Besylate) 10 Mg Tablet, 10 MG PO DAILY for htn MDD 1, #60 Prescribed by: KAYLA HI on 08/17/18 1050 Clonidine Hcl (Catapres) 0.1 Mg Tablet, 0.1 MG PO BID for htn MDD 1, #60 Prescribed by: KAYLA HI on 08/17/18 1050 Hydrochlorothiazide (Hydrochlorothiazide Capsule ) 12.5 Mg Capsule, 25 MG PO DAILY for htn MDD 1, #60 Prescribed by: KAYLA HI on 08/17/18 1050 Lisinopril (Lisinopril) 40 Mg Tablet, 40 MG PO DAILY for htn MDD 1, #60 Prescribed by: KAYLA HI on 08/17/18 1050 Scheduled PRN Hydrocodone Bit/Acetaminophen (Hydrocodone-Apap 5-325 ) 1 Tab Tablet, 1 TAB PO PRN Q4HRS PRN for PAIN MDD 1, #15 Prescribed by: KAYLA HI on 08/17/18 1050 KAYLA HI MD August 17, 2018 10:53
[2018-08-17 11:00] VITALS: BP 140/73
[2018-08-17 15:00] VITALS: BP 148/85
[2018-08-17 19:58] VITALS: BP 171/93
[2018-08-17] MEDS: diphenhydrAMINE 50 MG/ML VIAL IVP PRN (21:25)
[2018-08-17 23:04] VITALS: BP 156/72
[2018-08-18 03:51] VITALS: BP 167/85
[2018-08-18] MEDS: cloNIDine HCL 0.1 MG TABLET PO SCH ×2 (06:26→14:06)
[2018-08-18 07:00] VITALS: BP 158/90
[2018-08-18] MEDS: LISINOPRIL 20 MG TABLET PO SCH (10:02)
[2018-08-18] MEDS: amLODIPine BESYLATE 10 MG TABLET PO SCH (10:03)
[2018-08-18] MEDS: ACETAMINOPHEN 325 MG TABLET. PO PRN (10:03)
[2018-08-18] MEDS: hydroCHLOROthiazide 12.5 MG CAPSULE PO SCH (10:04)
--- NOTE | 2018-08-18 10:56 | CARD ---
MR#: [id number] Date of Study: 08/14/2018 Ordering Physician: MERLE GARZA, Referring Physician: KAYLA HI Tech: Destini Israel [facility] APPROVED REPORT EXAM: Two-dimensional and M-mode echocardiogram with Doppler and color Doppler. Other Information Quality : Fair INDICATION Chest Pain 2D DIMENSIONS RVDd2.7 (2.9-3.5cm)Left Atrium(2D)4.0 (1.6-4.0cm) IVSd1.7 (0.7-1.1cm)Aortic Root(2D)2.8 (2.0-3.7cm) LVDd4.9 (3.9-5.9cm)LVOT Diameter2.0 (1.8-2.4cm) PWd1.9 (0.7-1.1cm)LVDs2.7 (2.5-4.0cm) FS (%) 30.0 %SV83.1 ml LVEF(%)60.0 (>50%) Aortic Valve AoV Peak Ibrahima.171.8cm/sAoV VTI30.0cm AO Peak GR.11.8mmHgLVOT Peak Ibrahima.126.4cm/s AO Mean GR.8mmHgAVA (VMAX)2.36cm2 LARRY (VTI)2.60cm2 Mitral Valve MV E Iiyabtcs20.1cm/sMV DECEL [id number] MV A Fzsuoonf201.5cm/sE/A Ratio0.8 Pulmonary Vein S1 Vwfbjgjw44.9cm/sD2 Ohuwjoes23.2cm/s LEFT VENTRICLE The left ventricle is normal size. There is mild to moderate concentric left ventricular hypertrophy. The left ventricular systolic function is normal and the ejection fraction is within normal range. T he Ejection Fraction is 60-65%. There is normal LV segmental wall motion. Transmitral Doppler flow pa ttern is Grade I-abnormal relaxation pattern. RIGHT VENTRICLE The right ventricle is normal size. The right ventricular systolic function is normal. ATRIA The left atrium is mildly dilated. The right atrium size is normal. The interatrial septum is intact with no evidence for an atrial septal defect or patent foramen ovale as noted on 2-D or Doppler imagi ng. AORTIC VALVE The aortic valve is moderately thickened but opens well. Doppler and Color Flow revealed trace aortic regurgitation. There is no significant aortic valvular stenosis. MITRAL VALVE The mitral valve is normal in structure and function. There is no evidence of mitral valve prolapse. There is no mitral valve stenosis. Doppler and Color Flow revealed no mitral valve regurgitation note d. TRICUSPID VALVE The tricuspid valve is normal in structure and function. Doppler and Color Flow revealed no tricuspid valve regurgitation noted. There is no tricuspid valve stenosis. PULMONIC VALVE The pulmonic valve is not well visualized. Doppler and Color Flow revealed trace to mild pulmonic jelani vular regurgitation. There is no pulmonic valvular stenosis. GREAT VESSELS The aortic root is normal in size. The ascending aorta is normal in size. The IVC is normal in size a nd collapses >50% with inspiration. PERICARDIAL EFFUSION There is no evidence of significant pericardial effusion. Critical Notification Critical Value: No <Conclusion> The left ventricular systolic function is normal and the ejection fraction is within normal range. Th e Ejection Fraction is 60-65%. There is normal LV segmental wall motion. Signed by : Charlie Alvarez, Electronically Approved : 08/14/2018 14:38:53
[2018-08-18 11:00] VITALS: BP 143/80
--- NOTE | 2018-08-18 11:32 | PDOC ---
Provider Note Provider Note Did not DC yesterday because of social issues Now she claims she will talk with psychosocial rehabilitation counselor and her family today is there at home to help her She self-pay hence we'll have no PT OT benefits PLAN: Home today Social work consult for social issues All Rx on chart KAYLA HI MD August 18, 2018 11:32
--- NOTE | 2018-08-18 12:43 | NUR ---
ANYI following pt. Spoke with pt regarding concerns she has about her bill. Pt requested to meet with someone regarding setting up a payment plan. ANYI spoke with Kesha at registration and was informed pt will have to wait until billing is formulated to request a payment plan. After speaking with [facility] research quality assurance analyst, ANYI provided pt with a phone number to Bill Assistance to follow up with once billing is due. Discussed with RN.
--- NOTE | 2018-08-18 13:10 | PDOC ---
PROGRESS NOTES Assessment Problems Medical Problems: (1) Hypertensive crisis Status: Acute (2) UTI (urinary tract infection) Status: Acute Hypertensive encephalopathy. Chronic 7 mm left parietal hemorrhage, no acute hemorrhage. Plan Okay for discharge Follow-up with neurology as needed Subjective Feels much better, no headache Objective Vital Signs Date Time Temp Pulse Resp B/P (MAP) Pulse Ox O2 Delivery O2 Flow Rate FiO2 08/18/18 11:00 98.1 80 18 143/80 (101) 95 Room Air 98.1 Intake and Output 08/18/18 07:00 Intake Total 1130 ml Balance 1130 ml Intake Oral 1130 ml # Voids 4 PHYSICAL EXAM Alert. Oriented to time, place and person. PERRL. EOMI. CN: no focal findings. Muscle tone: normal. Muscle strength: 5/5 DTR: 1+ Plantar reflex: flexor Gait: not examined in bed. Sensory exam: no abnormal findings. No cerebellar signs elicited. Review of Relevant I have reviewed the following items rodrigue (where applicable) has been applied. Labs Microbiology 08/13/18 Urine Culture - Final, Complete 08/13/18 Urine Culture Result 1 (DIRK) - Final, Complete 08/13/18 Antimicrobic Susceptibility - Final, Complete Medications Current Medications Hydralazine HCl (Apresoline Inj) 10 mg 1X ONCE IVP Last administered on 08/13/18at 22:05; Start 08/13/18 at 19:45; Stop 08/13/18 at 19:47; Status DC Fentanyl Citrate (Fentanyl 2ml Vial) 50 mcg 1X ONCE IV ; Start 08/13/18 at 19:45; Stop 08/13/18 at 19:47; Status DC Ondansetron HCl (Zofran) 4 mg 1X ONCE IV ; Start 08/13/18 at 19:45; Stop 08/13/18 at 19:47; Status DC Clonidine HCl (Catapres) 0.2 mg 1X ONCE PO Last administered on 08/13/18at 21:02; Start 08/13/18 at 21:30; Stop 08/13/18 at 21:31; Status DC Clonidine HCl (Catapres) 0.1 mg STK-MED ONCE .ROUTE ; Start 08/13/18 at 21:01; Stop 08/13/18 at 21:02; Status DC Ceftriaxone Sodium (Rocephin) 1 gm 1X ONCE IVP Last administered on 08/13/18at 23:36; Start 08/13/18 at 23:00; Stop 08/13/18 at 23:01; Status DC Ondansetron HCl (Zofran) 4 mg PRN Q8HRS PRN IV NAUSEA/VOMITING 1ST CHOICE Last administered on 08/14/18at 05:40; Start 08/14/18 at 00:15; Stop 08/14/18 at 07:32; Status DC Fentanyl Citrate (Fentanyl 2ml Vial) 50 mcg PRN Q1HR PRN IV SEVERE PAIN; Start 08/14/18 at 00:15; Stop 08/15/18 at 00:14; Status DC Labetalol HCl (Normodyne Iv Push) 20 mg PRN Q2HR PRN IVP HYPERTENSION Last administered on 08/14/18 03:06; Start 08/14/18 at 03:00; Stop 08/14/18 at 04:57; Status DC Acetaminophen (Tylenol) 650 mg PRN Q6HRS PRN PO HEADACHE Last administered on 08/18/18at 10:03; Start 08/14/18 at 03:00 Methylprednisolone Sodium Succinate (SOLU-Medrol 125MG VIAL) 125 mg 1X ONCE IV Last administered on 08/14/18 05:41; Start 08/14/18 at 05:15; Stop 08/14/18 at 05:16; Status DC Diphenhydramine HCl (Benadryl) 50 mg 1X ONCE IVP Last administered on 08/14/18at 05:41; Start 08/14/18 at 05:15; Stop 08/14/18 at 05:16; Status DC Diphenhydramine HCl (Benadryl) 25 mg PRN Q6HRS PRN IVP ITCHING Last administered on 08/17/18 21:25; Start 08/14/18 at 05:00 Hydralazine HCl (Apresoline Inj) 10 mg PRN Q6HRS PRN IVP ELEVATED BP, SEE COMMENTS Last administered on 08/17/18at 21:24; Start 08/14/18 at 05:00 Ondansetron HCl (Zofran) 4 mg PRN Q6HRS PRN IV NAUSEA/VOMITING 1ST CHOICE Last administered on 08/16/18at 14:51; Start 08/14/18 at 07:45 Lisinopril (Prinivil) 10 mg DAILY PO Last administered on 08/14/18at 08:40; Start 08/14/18 at 09:00; Stop 08/15/18 at 08:09; Status DC Hydrochlorothiazide (Microzide) 12.5 mg DAILY PO Last administered on 08/14/18at 08:40; Start 08/14/18 at 09:00; Stop 08/15/18 at 08:09; Status DC Hydrochlorothiazide (Microzide) 25 mg DAILY PO Last administered on 08/18/18at 10:04; Start 08/15/18 at 09:00 Lisinopril (Prinivil) 20 mg DAILY PO Last administered on 08/16/18at 08:29; Start 08/15/18 at 09:00; Stop 08/16/18 at 15:57; Status DC Amlodipine Besylate (Norvasc) 10 mg DAILY PO Last administered on 08/18/18at 10:03; Start 08/16/18 at 09:30 Acetaminophen/ Hydrocodone Bitart (Lortab 5/325) 1 tab PRN Q4HRS PRN PO PAIN Last administered on 08/16/18at 12:09; Start 08/16/18 at 11:45 Fentanyl Citrate (Fentanyl 2ml Vial) 50 mcg PRN Q2HR PRN IV PAIN; Start 08/16/18 at 11:45 Lisinopril (Prinivil) 40 mg DAILY PO Last administered on 08/18/18at 10:02; Start 08/17/18 at 09:00 Clonidine HCl (Catapres) 0.1 mg Q8HRS PO Last administered on 08/18/18at 06:26; Start 08/16/18 at 16:30 Active Scripts Active Hydrocodone-Apap 5-325 (Hydrocodone Bit/Acetaminophen) 1 Tab Tablet 1 Tab PO PRN Q4HRS PRN MDD 1 Lisinopril 40 Mg Tablet 40 Mg PO DAILY MDD 1 Hydrochlorothiazide Capsule (Hydrochlorothiazide) 12.5 Mg Capsule 25 Mg PO DAILY MDD 1 Amlodipine Besylate 10 Mg Tablet 10 Mg PO DAILY MDD 1 Catapres (Clonidine Hcl) 0.1 Mg Tablet 0.1 Mg PO BID MDD 1 Vitals/I & O Vital Sign - Last 24 Hours 5/2708/17/18 08/17/18 08/17/18 14:49 15:00 19:58 20:00 Temp 98.5 98.6 98.5 98.6 Pulse 71 71 75 Resp 16 16 B/P (MAP) 140/73 148/85 (106) 171/93 (119) Pulse Ox 92 97 O2 Delivery Room Air Room Air Room Air 08/17/18 08/17/18 08/17/18 08/18/18 21:23 21:24 23:04 03:51 Temp 98.2 98.5 98.2 98.5 Pulse 75 75 80 71 Resp 16 16 B/P (MAP) 171/93 171/93 156/72 (100) 167/85 (112) Pulse Ox 91 96 O2 Delivery Room Air Room Air 08/18/18 08/18/18 08/18/18 08/18/18 06:26 07:00 08:00 10:02 Temp 97.5 97.5 Pulse 80 75 75 Resp 20 B/P (MAP) 162/84 158/90 (112) 158/90 Pulse Ox 91 O2 Delivery Room Air Room Air 08/18/18 08/18/18 10:03 11:00 Temp 98.1 98.1 Pulse 75 80 Resp 18 B/P (MAP) 158/90 143/80 (101) Pulse Ox 95 O2 Delivery Room Air Intake and Output 08/17/18 08/17/18 08/18/18 15:00 23:00 07:00 Intake Total 270 ml 360 ml 500 ml Balance 270 ml 360 ml [address] HEAD WO CONTRAST, 08/16 Again seen is a small subcentimeter hyperdense nodule of the posterior left parietal region. This is stable. This may represent a small focus of hemorrhage. No new focus of acute intracranial hemorrhage is seen. Moderate bilateral periventricular white matter hypodensity is again seen which is unchanged. No midline shift or mass effect or hydrocephalus or extra-axial fluid collection is seen. IMPRESSION: Stable small subcentimeter hyperintense nodule of the posterior left parietal region. This may represent a small focus of hemorrhage. MRI study demonstrated multiple areas of chronic microhemorrhage. No new acute intracranial hemorrhage is evident. No mass effect is seen. Stable head CT MRI of the brain without contrast 08/14/2018 There is generalized parenchymal atrophy. Patchy, confluent and multiple focal areas of increased signal intensity are seen within the periventricular and subcortical white matter of both cerebral hemispheres along with the lauren on the FLAIR and T2-weighted images consistent with areas of extensive small vessel ischemic disease. Innumerable focal areas of markedly decreased signal intensity are seen scattered throughout the cerebellum, lauren, midbrain and both cerebral hemispheres on the gradient echo images. These measure 1 mm to 1.2 cm in size. They have increased substantially in number since the previous examination. They are felt to most likely reflect areas of previous microhemorrhage. They could be seen in the setting of hypertensive microangiopathy and/or cerebral amyloid angiopathy. No acute parenchymal abnormality is definitely seen. No extra-axial fluid collection is seen. There is no MRI evidence of acute ischemia/infarction. Mild mucosal thickening is scattered throughout the paranasal sinuses. There are minimal bilateral mastoid effusions. Normal flow voids are seen within the major vascular structures surrounding the brain parenchyma. Impression: No acute parenchymal abnormality is seen. JAYDE CERON MD August 18, 2018 13:10
[2018-08-18 14:06] VITALS: BP 143/80
--- NOTE | 2018-08-18 15:41 | NUR ---
Discharge Note: DENNIS KHAN Discharge instructions and discharge home medications reviewed with patient and a copy given. All questions have been answered and understanding verbalized. The following instructions and handouts were given: Prescriptions for lisinopril, hydrochlorthiazide, amlodipine, clonidine, and hydrocodone/APAP given to patient. Patient was instructed not to take aspirin/NSAIDs due to presence of brain hemorrhage. Education handout regarding hypertension and cardiac diet given to the patient. Patient was instructed to hold a BP medicine if blood pressure is lower than 130 mmHg systolic. To follow up with PCP in 4 weeks re blood pressure. Patient educated to seek help/ call provider if she experiences worsening of symptoms/ headache, nausea, vomiting, weakness, blurred vision, and slurred speech. Discontinued lines and drains: peripheral IV catheter intact, patient tolerated removal. No complications noted. Patient discharged to home with self care via wheelchair accompanied by family members at 1500.
== END 2018-08-18 14:55 | disposition home or self-care (01) | DRG 77 ==
LOC: ER 18:09 → 6 SOUTH 08-14 00:15
PROVIDERS: ADMIT Internal Medicine; ATTEND Internal Medicine
DX: I67.4 Hypertensive encephalopathy (principal); I61.1 Nontraumatic intracerebral hemorrhage in hemisphere, cortical; I16.1 Hypertensive emergency; N39.0 Urinary tract infection, site not specified; E66.01 Morbid (severe) obesity due to excess calories; E78.5 Hyperlipidemia, unspecified; I10 Essential (primary) hypertension; Z68.39 Body mass index [BMI] 39.0-39.9, adult; Z82.3 Family history of stroke; Z82.49 Family history of ischemic heart disease and other diseases of the circulatory system; Z87.891 Personal history of nicotine dependence; Z90.710 Acquired absence of both cervix and uterus; Z95.0 Presence of cardiac pacemaker; Z95.1 Presence of aortocoronary bypass graft; Z83.3 Family history of diabetes mellitus; Z79.899 Other long term (current) drug therapy; Z88.8 Allergy status to other drugs, medicaments and biological substances
CPT/HCPCS: 36415; 70450; 70551; 71045; 80053; 80061; 80307; 81001; 83735; 84443; 84484; 85007; 85025; 87086; 87186; 93005; 93306; 96374; 96375; J0360; J0696; J1200; J2405; J2930; J3490; 99285-25